=== PATIENT | female | born 1960 ===

== ENCOUNTER 2020-01-19 10:05 | Outpatient (REF) | payer MEDICARE, MEDICAID, SELFPAY ==
[2020-01-19 13:46] LABS: MANUAL DIFF FLAG NO
[2020-01-19 13:50] LABS: Basophils Absolute Auto 0.1 X10*3/uL (0.0-0.2); Eosinophils Absolute Auto 0.3 X10*3/uL (0.0-0.4); Eosinophils Percent Auto 3.5 % (0-4); Hematocrit 37.2 % (37-47); Hemoglobin 12.6 g/dl (12.0-16.0); Imm Gran Abs Auto 0.03 X10*3/uL (0.00-0.03); Imm Gran Pct Auto 0.4 % (0.0-0.4); Lymphocytes Absolute Auto 3.9 X10*3/uL (1.2-4.9); Lymphocytes Percent Auto 49.4 % (20-40); Mean Corpuscular HGB Conc 33.9 g/dl (31.0-35.0); Mean Corpuscular Hemoglobin 34.5 pg (27.0-33.0); Mean Corpuscular Volume 101.9 fL (80-98); Mean Platelet Volume 10.7 fL (9.4-12.3); Monocytes Absolute Auto 0.5 X10*3/uL (0.1-1.2); Monocytes Percent Auto 6.4 % (2-11); Neutrophils Absolute Auto 3.1 X10*3/uL (2.0-8.3); Neutrophils Percent Auto 39.3 % (45-73); Platelet Count 269 X10*3/uL (160-400); Red Blood Count 3.65 X10*6/uL (4.20-5.50); Red Cell Distribution Width 13.6 % (11.0-16.0); White Blood Count 7.8 X10*3/uL (4.8-10.8)
[2020-01-19 14:26] LABS: Alanine Aminotransferase 13 U/L (0-31); Albumin Level 4.1 g/dL (3.5-5.0); Alkaline Phosphatase 112 U/L (39-117); Anion Gap 11 (12-20); Aspartate Amino Transferase 14 U/L (5-31); Bilirubin Direct < 0.2 mg/dL (0.0-0.5); Bilirubin Total 0.2 mg/dL (0.0-1.0); Blood Urea Nitrogen 10 mg/dL (9-16); Carbon Dioxide 27 mmol/L (22-29); Chloride 106 mmol/L (96-108); Estimated Glomerular Filt Rate > 60; Glucose Random 90 mg/dL (60-115); Potassium 4.1 mmol/l (3.3-5.1); Sodium 140 mmol/L (135-145); Total Protein 6.6 g/dL (6.5-8.0)
[2020-01-24 09:40] LABS: ~HepC Num1 0.21 S/CO (0.00-0.79); ~Hepatitis C Antibody Nonreactive (Nonreactive)
== END 2020-01-19 10:06 | disposition home or self-care (01) ==
LOC: HO.10HDL 10:05
PROVIDERS: Visit Provider Internal Medicine
DX: B20 Human immunodeficiency virus [HIV] disease (principal)
CPT/HCPCS: 36415; 80048; 80076; 85025; 86803; 87389

== ENCOUNTER 2020-02-02 12:43 | Outpatient (REF) | payer MEDICARE, MEDICAID, SELFPAY ==
[2020-02-03 16:06] LABS: Absolute CD3 Count 3059 cells/uL (840-3060); Absolute CD4 Count 1842 cells/uL (490-1740); Absolute CD8 Count 1260 cells/uL (180-1170); Absolute Lymphocytes 3905 cells/uL (850-3900); CD4 CD8 Ratio 1.46 (0.86-5.00); Percent CD3 Cells 78 % (57-85); Percent CD4 Cells 47 % (30-61); Percent CD8 Cells 32 % (12-42)
== END 2020-02-02 12:44 | disposition home or self-care (01) ==
LOC: HO.10HDL 12:43
PROVIDERS: Visit Provider Orthopaedic Surgery
DX: B20 Human immunodeficiency virus [HIV] disease (principal)
CPT/HCPCS: 36415; 86359; 86360

== ENCOUNTER → 2020-02-16 17:00 | Outpatient (BNVA) | payer MEDICARE, MEDICAID, SELFPAY | PROVIDERS: Visit Provider Internal Medicine | DX: B20 Human immunodeficiency virus [HIV] disease (principal) | CPT/HCPCS: 99212 ==

== ENCOUNTER 2020-07-26 11:14 | Outpatient (REF) | payer MEDICARE, MEDICAID, SELFPAY ==
[2020-07-26 14:00] LABS: MANUAL DIFF FLAG NO
[2020-07-26 14:13] LABS: Basophils Absolute Auto 0.1 X10*3/uL (0.0-0.2); Basophils Percent Auto 0.7 % (0-2); Eosinophils Absolute Auto 0.2 X10*3/uL (0.0-0.4); Eosinophils Percent Auto 2.6 % (0-4); Hematocrit 35.4 % (37-47); Hemoglobin 12.2 g/dl (12.0-16.0); Imm Gran Abs Auto 0.04 X10*3/uL (0.00-0.03); Imm Gran Pct Auto 0.5 % (0.0-0.4); Lymphocytes Absolute Auto 2.9 X10*3/uL (1.2-4.9); Lymphocytes Percent Auto 35.6 % (20-40); Mean Corpuscular HGB Conc 34.5 g/dl (31.0-35.0); Mean Corpuscular Hemoglobin 35.7 pg (27.0-33.0); Mean Corpuscular Volume 103.5 fL (80-98); Mean Platelet Volume 10.6 fL (9.4-12.3); Monocytes Absolute Auto 0.4 X10*3/uL (0.1-1.2); Monocytes Percent Auto 5.3 % (2-11); Neutrophils Absolute Auto 4.5 X10*3/uL (2.0-8.3); Neutrophils Percent Auto 55.3 % (45-73); Platelet Count 291 X10*3/uL (160-400); Red Blood Count 3.42 X10*6/uL (4.20-5.50); Red Cell Distribution Width 14.1 % (11.0-16.0); White Blood Count 8.2 X10*3/uL (4.8-10.8)
[2020-07-26 14:21] LABS: Alanine Aminotransferase 14 U/L (0-31); Alkaline Phosphatase 117 U/L (39-117); Anion Gap 10 (12-20); Aspartate Amino Transferase 11 U/L (5-31); Bilirubin Direct < 0.2 mg/dL (0.0-0.5); Bilirubin Total 0.3 mg/dL (0.0-1.0); Blood Urea Nitrogen 12 mg/dL (9-16); Calcium 9.1 mg/dL (8.4-10.2); Carbon Dioxide 24 mmol/L (22-29); Chloride 108 mmol/L (96-108); Estimated Glomerular Filt Rate > 60; Glucose Random 80 mg/dL (60-115); Potassium 3.8 mmol/L (3.3-5.1); Sodium 138 mmol/L (135-145); Total Protein 6.5 g/dL (6.5-8.0)
[2020-07-27 11:07] LABS: Absolute CD3 Count 2382 cells/uL (840-3060); Absolute CD4 Count 1418 cells/uL (490-1740); Absolute CD8 Count 1018 cells/uL (180-1170); Absolute Lymphocytes 3045 cells/uL (850-3900); CD4 CD8 Ratio 1.39 (0.86-5.00); Percent CD3 Cells 78 % (57-85); Percent CD4 Cells 47 % (30-61); Percent CD8 Cells 33 % (12-42)
[2020-07-28 07:44] LABS: ~Hepatitis C Antibody Nonreactive (Nonreactive)
[2020-07-28 16:02] LABS: HIV RNA PCR Qn Copies 32 copies/mL (NOT DETECTED); HIV RNA PCR Qn Log Copies 1.51 (NOT DETECTED)
== END 2020-07-26 11:15 | disposition home or self-care (01) ==
LOC: HO.10HDL 11:14
PROVIDERS: Absent Provider Internal Medicine; Visit Provider Internal Medicine
DX: B20 Human immunodeficiency virus [HIV] disease (principal)
CPT/HCPCS: 36415; 80048; 80076; 85025; 86359; 86360; 86803; 87536

== ENCOUNTER 2020-07-27 15:39 | Outpatient (REF) | payer MEDICARE, MEDICAID, SELFPAY ==
--- NOTE | ~2020-07-27 | XR_ITS ---
EXAMINATION: XR CHEST CLINICAL INFORMATION: Tobacco use. Rule out lesion. COMPARISON: 10/29/2018 TECHNIQUE: 2 views of the chest were obtained. FINDINGS: The lungs are well expanded. Mild blunting at the right costophrenic angle. No consolidation or edema. No pneumothorax. The cardiomediastinal silhouette is within normal limits. No acute osseous abnormality. XR/XR chest 2V IMPRESSION: Mild blunting of the right costophrenic angle could represent a small pleural effusion versus pleural thickening. No consolidation or mass identified.
--- NOTE | ~2020-07-27 | XR_ITS ---
EXAMINATION: XR HIP, LEFT CLINICAL INFORMATION: Assess osteoarthritis COMPARISON: None TECHNIQUE: Single AP view the pelvis and AP and frog-leg lateral views of the left hip FINDINGS: No acute fracture or dislocation. Femoral heads are spherical. Mild/moderate bilateral hip joint space narrowing and associated acetabular and femoral collar marginal osteophytes. Mild bilateral sacroiliac joint sclerosis and associated marginal osteophytes. Degenerative changes of the symphysis pubis. Discogenic degenerative disease present at L4-L5 and L5-S1. XR/XR hip LT w PEL1V IMPRESSION: Moderate bilateral hip arthrosis, slightly worse on the left. Mild bilateral sacroiliac arthrosis.
== END 2020-07-27 15:40 | disposition home or self-care (01) ==
LOC: HO.XRAY 15:39
PROVIDERS: PCP Internal Medicine; Visit Provider Internal Medicine
DX: M25.552 Pain in left hip (principal); R63.4 Abnormal weight loss; Z72.0 Tobacco use
CPT/HCPCS: 71046; 73502

== ENCOUNTER → 2020-08-10 13:03 | Outpatient (BNVA) | payer MEDICARE, MEDICAID, SELFPAY | PROVIDERS: PCP Internal Medicine; Visit Provider Orthopaedic Surgery | DX: B20 Human immunodeficiency virus [HIV] disease (principal); M16.12 Unilateral primary osteoarthritis, left hip | CPT/HCPCS: 99212 ==

== ENCOUNTER → 2020-09-04 15:30 | Outpatient (BNVA) | payer MEDICARE, MEDICAID, SELFPAY | PROVIDERS: PCP Internal Medicine; Visit Provider Internal Medicine | DX: B20 Human immunodeficiency virus [HIV] disease (principal) | CPT/HCPCS: Q3014 ==

== ENCOUNTER 2020-11-23 09:57 | Outpatient (REF) | payer MEDICARE, MEDICAID, SELFPAY ==
--- NOTE | 2020-11-23 11:39 | ECG_ITS ---
Test Reason : Z01.810 PREOP Blood Pressure : / mmHG Vent. Rate : 064 BPM Atrial Rate : 064 BPM P-R Int : 136 ms QRS Dur : 082 ms QT Int : 426 ms P-R-T Axes : 063 044 052 degrees QTc Int : 439 ms Normal sinus rhythm Normal ECG When compared with ECG of 29-OCT-2018 09:30, Vent. rate has decreased BY 38 BPM Referred By: Devaughn Nichols Electronically Signed By:PHIL GARRETT MD
[2020-11-23 13:28] LABS: MANUAL DIFF FLAG NO
[2020-11-23 13:34] LABS: Basophils Absolute Auto 0.1 X10*3/uL (0.0-0.2); Basophils Percent Auto 0.9 % (0-2); Eosinophils Absolute Auto 0.2 X10*3/uL (0.0-0.4); Hematocrit 38.3 % (37-47); Hemoglobin 12.7 g/dl (12.0-16.0); Imm Gran Abs Auto 0.03 X10*3/uL (0.00-0.03); Imm Gran Pct Auto 0.4 % (0.0-0.4); Lymphocytes Absolute Auto 3.4 X10*3/uL (1.2-4.9); Lymphocytes Percent Auto 44.3 % (20-40); Mean Corpuscular HGB Conc 33.2 g/dl (31.0-35.0); Mean Corpuscular Volume 102.4 fL (80-98); Mean Platelet Volume 10.8 fL (9.4-12.3); Monocytes Absolute Auto 0.5 X10*3/uL (0.1-1.2); Monocytes Percent Auto 6.1 % (2-11); Neutrophils Absolute Auto 3.5 X10*3/uL (2.0-8.3); Neutrophils Percent Auto 45.3 % (45-73); Platelet Count 259 X10*3/uL (160-400); Red Blood Count 3.74 X10*6/uL (4.20-5.50); Red Cell Distribution Width 13.2 % (11.0-16.0); White Blood Count 7.7 X10*3/uL (4.8-10.8)
[2020-11-23 13:48] LABS: Anion Gap 10 (12-20); Blood Urea Nitrogen 13 mg/dL (9-16); Calcium 8.9 mg/dL (8.4-10.2); Carbon Dioxide 26 mmol/L (22-29); Chloride 109 mmol/L (96-108); Estimated Glomerular Filt Rate > 60; Glucose Random 96 mg/dL (60-115); Potassium 3.8 mmol/L (3.3-5.1); Sodium 141 mmol/L (135-145)
== END 2020-11-23 09:58 | disposition home or self-care (01) ==
LOC: HO.10HDL 09:57
PROVIDERS: PCP Internal Medicine; Visit Provider Orthopaedic Surgery
DX: Z01.810 Encounter for preprocedural cardiovascular examination (principal); Z01.812 Encounter for preprocedural laboratory examination
CPT/HCPCS: 36415; 80048; 85025; 93005

== ENCOUNTER 2020-12-21 08:54 | Outpatient (REF) | payer MEDICARE, MEDICAID, SELFPAY ==
--- NOTE | ~2020-12-21 | XR_ITS ---
EXAMINATION: XR PELVIS CLINICAL INFORMATION: M25.559 - Pain in unspecified hip COMPARISON: Pelvic radiographs 07/27/2020, lumbar spine 12/13/2016 TECHNIQUE: AP view of the pelvis. FINDINGS: There are degenerative changes lower lumbar spine with disc narrowing and vertebral spurring L3-S1. There are mild degenerative changes SI joints. Whiskering lateral aspect bilateral iliac crests is seen. There is mild osteitis pubis and mild degenerative changes bilateral hips. Findings are similar to recent exam 07/27/2020. There is no fracture, dislocation, or destructive process. There is moderate stool in the colon. Ribbon shaped clip overlies midabdomen, not previously imaged. XR/XR pelvis 1-2V IMPRESSION: 1. Degenerative changes lumbosacral spine. 2. Osteitis pubis. Mild degenerative changes hips.
== END 2020-12-21 08:55 | disposition home or self-care (01) ==
LOC: HO.HOSX 08:54
PROVIDERS: Visit Provider Orthopaedic Surgery
DX: M16.12 Unilateral primary osteoarthritis, left hip (principal)
CPT/HCPCS: 72170; 99212

== ENCOUNTER 2020-12-27 12:16 | Inpatient (IN) | payer MEDICARE, MEDICAID, SELFPAY ==
--- NOTE | 2020-12-22 11:55 | HO.ANESPROP2 ---
Documented by User: Abbey Gay NP 12/25/20 08:22 HPI - Anesthesia Eval Consult details Narrative: 60yo F for Left Hip Total Replacement PCP cleared PMFSH Active Problems Active Problems: All Active Problems (Updated 12/21/20 @ 13:15 by Art Francisco PA-C) Osteoarthritis of left hip (Acute) HIV (human immunodeficiency virus infection) (Acute) Past Medical History Medical History Arthritis COVID-19 vaccine series completed History of COVID-19 HIV (human immunodeficiency virus infection) Family History Family history of problems with anesthesia: No Surgical History Surgical History History of colonoscopy Hx laparoscopic cholecystectomy Hx of rectal sphincterotomy History of Problems with Anesthesia: No Social History Social History Are you a primary progressive care unit registered nurse to a significant other at home: No Do you presently have visiting nurse or other home services: No Patient Tobacco Use Status: Current everyday Tobacco user Tobacco use type: Cigarette Cigarettes Per Day: 3 Years Smoked: 41 Smoked in Last 30 Days: Yes Patient Interested in Nicotine Replacement: Yes Use of substances other than those prescribed or required for medical reasons: No Have you been hit, kicked, punched, or otherwise hurt by someone within the past year? If so, by whom?: No Are you DNR?: No Advance Directives: Yes (states is her daughter) Advance Directives Information Provided: Yes Advance Directives on File: Yes Advance Directives Date on File: 01/19/20 Recently lost weight without trying: No Eating poorly because of decreased appetite: No Nutrition Risks: No Nutritional Risk Poor oral hygiene: No (upper & lower partials) Current occupational status: disabled Current occupation: rt handed Narrative Narrative: No recent illness No CP/SOB >4 mets Meds Allergies Allergy/AdvReac Type Severity Reaction Status Date / Time No Known Allergies Allergy Verified 12/21/20 13:18 [No Known Allergies*] Home Medications Medication Instructions Recorded Confirmed Last Taken Type efavirenz 600 mg-emtricitabine 200 1 tab PO DAILY 12/27/20 12/27/20 12/27/20 00:00 History mg-tenofovir disoprox 300 mg tablet (Atripla) Exam Exam Date and Time: December 22, 2020 1155 Height,Weight and Vital Signs: Vital Signs Pulse Rate 70 12/22/20 12:08 Respiratory Rate 12/22/20 12:08 Blood Pressure 132/82 12/22/20 12:08 Pulse Oximetry 98 12/22/20 12:08 Pulse Rate 70 12/22/20 12:08 Respiratory Rate 12/22/20 12:08 Blood Pressure 132/82 12/22/20 12:08 Pulse Oximetry 98 12/22/20 12:08 Pertinent Lab Results Pertinent Lab Results: Laboratory Tests 11/23/20 11/23/20 11:35 11:35 WBC 7.7 Hgb 12.7 Hct 38.3 Plt Count 259 Sodium 141 Potassium 3.8 Chloride 109 H Carbon Dioxide 26 BUN 13 Creatinine 0.76 Laboratory Tests 07/26/20 11:25 Total Lymphocytes 3045 % CD3 Cells 78 Absolute CD3 Count 2382 % CD4 Cells 47 Absolute CD4 Count 1418 CD4/CD8 Ratio 1.39 % CD8 Cells 33 Absolute CD8 Count 1018 Lab Results 12/22/20 12/22/20 Range/Units 12:30 13:00 Nasal Screen MRSA (PCR) NEGATIVE (Negative) Nasal S. aureus Screen NEGATIVE (Negative) Nasal MRSA/S.aureus Interp SEE NOTE Blood Type O Negative Antibody Screen NEGATIVE Narrative Narrative: EKG 11/2020 Vent. Rate : 064 BPM ? ? Atrial Rate : 064 BPM ?? P-R Int : 136 ms? QRS Dur : 082 ms ? ? QT Int : 426 ms ? ? ? P-R-T Axes : 063 044 052 degrees ?? QTc Int : 439 ms ? Normal sinus rhythm Normal ECG When compared with ECG of 29-OCT-2018 09:30, Vent. rate has decreased BY? 38 BPM Airway Mallampati Class: I TM Dist: >3cm Neck ROM: Full Partial: Lower Heart: RRR Lungs: CTAB Assessment and Plan Assessment Anesthesia Assessment: Anesthesia Plan Discussed, Smoking Cess. Discussed and PAT Visit Final Anesthetic Review Family History of Problems with Anesthesia: No History of Problems with Anesthesia: No Documented by User: Irene Holloway MD 12/27/20 13:15 PMF Past Medical History Medical History Arthritis COVID-19 vaccine series completed History of COVID-19 HIV (human immunodeficiency virus infection) Surgical History Surgical History History of colonoscopy Hx laparoscopic cholecystectomy Hx of rectal sphincterotomy Social History Social History Are you a primary progressive care unit registered nurse to a significant other at home: No Do you presently have visiting nurse or other home services: No Patient Tobacco Use Status: Current everyday Tobacco user Tobacco use type: Cigarette Cigarettes Per Day: 3 Years Smoked: 41 Smoked in Last 30 Days: Yes Patient Interested in Nicotine Replacement: Yes Use of substances other than those prescribed or required for medical reasons: No Have you been hit, kicked, punched, or otherwise hurt by someone within the past year? If so, by whom?: No Are you DNR?: No Advance Directives: Yes (states is her daughter) Advance Directives Information Provided: Yes Advance Directives on File: Yes Advance Directives Date on File: 01/19/20 Recently lost weight without trying: No Eating poorly because of decreased appetite: No Nutrition Risks: No Nutritional Risk Poor oral hygiene: No (upper & lower partials) Current occupational status: disabled Current occupation: rt handed Meds Allergies Allergy/AdvReac Type Severity Reaction Status Date / Time No Known Allergies Allergy Verified 12/21/20 13:18 [No Known Allergies*] Home Medications Medication Instructions Recorded Confirmed Last Taken Type efavirenz 600 mg-emtricitabine 200 1 tab PO DAILY 12/27/20 12/27/20 12/27/20 00:00 History mg-tenofovir disoprox 300 mg tablet (Atripla) Assessment and Plan Final Anesthetic Review NPO: Yes ASA Class: III Final Preanesthetic Review: No Changes in Pt Med Stat, Meds/Allgs Chart Reviewed, Consent Obtained/Reviewed and Anes Risks/Benef Reviewed Patient Risk: Intermediate Procedure Risk: Intermediate Assessment/Block/Sedation in SS: Assess/Block/Sedation-SS Anesthetic Plan Anesthetic Plan: GA Disposition: Standard PACU
[2020-12-22 12:08] VITALS: BP 132/82; PULSE 70; RESP 20; O2SAT 98; BMI 24.6
[2020-12-22 14:33] LABS: MRSA Nasal PCR NEGATIVE (Negative); SA Nasal PCR NEGATIVE (Negative)
--- NOTE | 2020-12-22 16:50 | HP_ITS ---
DATE OF SERVICE: 12/26/2020 The patient is a 60-year-old female who is scheduled for a left total hip replacement with Dr. Nichols on December 26. The patient was seen today for preop evaluation. She feels well. Weight is up 5 pounds. She still smokes a few cigarettes each day. MEDICATIONS: Her present medications are Atripla, Claritin, Flonase, and a Ventolin inhaler. PAST MEDICAL HISTORY: Significant for hay fever, asthma, tobacco use, HIV positive. FAMILY HISTORY: Father at 78 from complications of diabetes. Mother at 61 from colon cancer. One brother at 55 from brain cancer. PAST SURGICAL HISTORY: Significant for cholecystectomy. She does have a history of colon polyps and had a colonoscopy in March of 2019, so she is up to date with that. SOCIAL HISTORY: She has 5 adult children in good health. REVIEW OF SYSTEMS: No fevers, chills, or sweats. Weight is up 5 pounds. No headaches or dizziness. No vision changes. No chest pains or palpitations. No peripheral edema. Persistent cough with wheezes occasionally. Some dyspnea with exertion. No heartburn or stomach pains. No dysuria. She has arthritis in her hips. Sleeps normally. Appetite good. She does have seasonal allergies. No skin complaints. PHYSICAL EXAMINATION: GENERAL: She is awake and alert, in no distress. VITAL SIGNS: Temperature is 98.2, pulse 83, respirations 12, blood pressure 116/78, 99% oxygen saturation on room air. Weight is 143. She is 5 feet and 3-1/2 inches. HEENT: Pupils equal. TMs clear. Pharynx clear. NECK: Supple. No lymph nodes, bruits, or masses. HEART: Sounds S1 and S2. Regular rate. LUNGS: Little distant, but clear. ABDOMEN: Soft and nontender with positive bowel sounds. No HSM. EXTREMITIES: No clubbing, cyanosis, or edema. 1 to 2+ pulses. Cranial nerves II through XII are intact. NEUROLOGIC: She is awake and alert, in no distress. Labs and EKG were completed in the hospital. She is medically stable for the proposed procedure. I will be available for any medical questions. Thank you very much. MD MADDY Negron/FRANCISCO / [phone]
[2020-12-27] VITALS (12 sets, daily range): BP systolic 107–127; BP diastolic 59–87; PULSE 63–78; RESP 13–18; TEMP 36.1–37; O2SAT 96–100; BMI 24.6
--- NOTE | ~2020-12-27 | XR_ITS ---
EXAMINATION: XR PELVIS CLINICAL INFORMATION: Postop COMPARISON: Previous x-ray of the pelvis 12/21/2020 TECHNIQUE: AP view of the pelvis. FINDINGS: There is a new hip replacement in satisfactory position. No fracture or dislocation is seen. Bones of the pelvis are unremarkable. There is arthritis of the right hip joint. Soft tissues are unremarkable. XR/XR pelvis 1-2V IMPRESSION: Satisfactory appearance of left hip replacement.
[2020-12-27] MEDS: oxyCODONE HCl ER 10 MG TAB.ER.12H PO ×2 (12:28→20:21)
[2020-12-27 12:47] LABS: COVID-19 Test Negative (Negative)
[2020-12-27] MEDS: Lactated Ringers 1,000 ML 100 ML IVCONT (13:11)
--- NOTE | 2020-12-27 13:31 | MHC.SHP ---
Pre-Procedural Eval Section A Date of Service: 12/27/20 The patient is an INPATIENT: No Changes since office visit: Yes Patient answered all questions; No Cold of Flu in the past 2 weeks, No New Medical Problems and No Changes in Medication The History & Physical has been completed within 30 days and I have reviewed it.: Yes Section B Chief Complaint: left total hip arthroplasty Allergies: Allergies Allergy/AdvReac Type Severity Reaction Status Date / Time No Known Allergies Allergy Verified 12/21/20 13:18 [No Known Allergies*] Plan I have reviewed the history and physical and performed a pertinent physical examination on my patient. No changes have occurred unless specified.
[2020-12-27] MEDS: ceFAZolin Sodium/Dextrose,Iso 2 GM/50 ML PIGGYBACK IV (14:23)
--- NOTE | 2020-12-27 15:41 | P.BOP_ITS ---
Brief Operative Note Date of Service: 12/27/20 Pre-op diagnosis: left hip OA Post-op diagnosis: same Procedure: Left ROBEL Implants: Phelps trrident2 48/accolade2 #3 132 deg with +0 ceramic 32 femoral head and 10 deg posterior lipped liner Surgeon: Devaughn Nichols MD Anesthesia: GETA and local Was an Manager Front used for this Procedure?: Yes Manager Front: Mireille Griggs Estimated blood loss (mL): 150 IV fluids (mL): 700 Pathology: other Condition: stable Disposition: PACU
--- NOTE | 2020-12-27 15:44 | P.OP_ITS ---
Operative Note Operative Note Date of Service: 12/27/20 Narrative: Pre-op diagnosis: left hip OA Post-op diagnosis: same Procedure: Left ROBEL Implants: Yale trrident2 48/accolade2 #3 132 deg with +0 ceramic 32 femoral head and 10 deg posterior lipped liner Surgeon: Devaughn Nichols MD Anesthesia: GETA and local Was an Mechanical Product Design Engineer used for this Procedure?: Yes Mechanical Product Design Engineer: Mireille Griggs Estimated blood loss (mL): 150 IV fluids (mL): 700 Pathology: other Condition: stable Disposition: PACU Procedure in detail: Patient was brought into the operating room and placed in the right lateral decubitus position. All bony prominences were well padded and the limb was prepped and draped in standard sterile fashion. Time-out was called to identify proper site procedure proper surgeon IV antibiotics and 1 g of transaxemic acid were administered. I began by making a curvilinear incision over the posterolateral aspect of the greater trochanter. Dissection was taken down to the tensor fascia which was incised in line with the incision and a Charnley retractor was placed. Cautery and a Werewolf were used to maintain hemostasis. The hip was internally rotated and the external rotators were identified. The vessels were cauterized and a full-thickness capsular/external rotator layer was developed starting just proximal to the piriformis. This layer was tagged and a dull Hohmann retractor was placed underneath the neck in the hip was dislocated. The head was circumerentially afflicted with arthritis. A neck cut was made 1 cm proximal to the lesser trochanter and the head and neck were removed and measured on the back table. I then placed my anterior-posterior acetabular retra ctors and performed a labrectomy. The hgead measured a 42 and I then sequentially reamed up to a size 48 with a 46 not through sclerotic bone. I then impacted a 48mm cup at approximately 45 degrees of inclination and 25 degrees of version. I then placed a __10 deg posterior lipped liner and turned my attention to the femur. I identified the piriformis insertion and used this as a starting point for my levi cutter. The medius tendon was protected with a Hibs retractor. I then used a Charnley awl to identify the canal and a curved curette to remove the lateral bone. I then sequentially broached in the patient's natural version to a size _3___ and placed my trial implants. Using a ____+0 head I took the hip through range of motion and I was very satisfied with the stability and length. Therefore I removed all instrumentation, copiously irrigated placed my final femoral implant. I again took the hip through range of motion and was satisfied with the stability and length using a + 0 and so the final femoral head was impacted in place. I then irrigated for 3 minutes with iodine and placed 1 g of local TXA. I then performed a capsular closure with FiberWire, Farhana's fascia with 0 Vicryl, subcuticular with 2-0 vicryl and skin with wendie. Patient was placed into a sterile dressing. Radiographs were obtained at the completion of the case and I was satisfied with the component position. Patient was extubated brought to the recovery room in stable condition.
[2020-12-27] MEDS: oxyCODONE HCl Immed Release 5 MG TABLET PO ×2 (16:11→20:20)
[2020-12-27] MEDS: fentaNYL citrate/PF 100 MCG/2 ML VIAL 50 MCG IVPUSH ×2 (16:13→16:23)
[2020-12-27] MEDS: Dextrose 5 % and 0.45 % NaCl 1,000 ML 80 ML IVCONT (20:01)
[2020-12-27] MEDS: 0.9 % Sodium Chloride Flush 3 ML SYRINGE IVFLUSH (20:01)
[2020-12-27] MEDS: Acetaminophen 325 MG TABLET 650 MG PO (20:21)
[2020-12-27] MEDS: Docusate Sodium 100 MG CAPSULE PO (20:22)
[2020-12-28] VITALS (8 sets, daily range): BP systolic 97–123; BP diastolic 62–76; PULSE 66–88; RESP 16–18; TEMP 36.7–38.1; O2SAT 97–100
[2020-12-28] MEDS: oxyCODONE HCl Immed Release 5 MG TABLET PO ×3 (00:25→18:01)
[2020-12-28] MEDS: Acetaminophen 325 MG TABLET 650 MG PO ×2 (04:30→20:50)
[2020-12-28 05:44] LABS: MANUAL DIFF FLAG NO
[2020-12-28 05:48] LABS: Basophils Percent Auto 0.3 % (0-2); Eosinophils Absolute Auto 0.1 X10*3/uL (0.0-0.4); Eosinophils Percent Auto 0.7 % (0-4); Hematocrit 30.9 % (37-47); Hemoglobin 10.5 g/dl (12.0-16.0); Imm Gran Abs Auto 0.04 X10*3/uL (0.00-0.03); Imm Gran Pct Auto 0.4 % (0.0-0.4); Lymphocytes Absolute Auto 1.5 X10*3/uL (1.2-4.9); Lymphocytes Percent Auto 16.3 % (20-40); Mean Platelet Volume 10.4 fL (9.4-12.3); Monocytes Absolute Auto 0.6 X10*3/uL (0.1-1.2); Monocytes Percent Auto 6.8 % (2-11); Neutrophils Percent Auto 75.5 % (45-73); Platelet Count 242 X10*3/uL (160-400); Red Cell Distribution Width 14.6 % (11.0-16.0); White Blood Count 9.2 X10*3/uL (4.8-10.8)
[2020-12-28 06:09] LABS: Anion Gap 11 (12-20); Blood Urea Nitrogen 15 mg/dL (9-16); Calcium 8.4 mg/dL (8.4-10.2); Carbon Dioxide 26 mmol/L (22-29); Chloride 106 mmol/L (96-108); Creatinine Clr Calc Pharmacy 77.9; Estimated Glomerular Filt Rate > 60; Glucose Fasting 148 mg/dL (60-99); Potassium 3.8 mmol/L (3.3-5.1); Sodium 139 mmol/L (135-145)
--- NOTE | 2020-12-28 07:29 | HO.POSTANES ---
Post Anesthesia Evaluation Post Anesthesia Evaluation Vital Signs: Vital Signs Temp Pulse Resp BP Pulse Ox 12/28/20 04:00 98.5 F 80 18 123/76 99 12/28/20 00:00 98.2 F 66 18 117/72 100 12/27/20 20:00 98.4 F 71 18 116/73 97 Anesthesia: General Mental Status: Awake Pain Control: Satisfactory Nausea/Vomiting: None Hydration: Adequate Anesthesia-Related Issues: No Anes. Related Issues
--- NOTE | 2020-12-28 07:38 | P.CONHOSP_ITS ---
History of Present Illness Data of Consult Service Date: 12/28/20 Requesting physician: Devaughn Nichols Primary Care Provider: Unknown Physician HPI Reason for consult: HIV management 60 year female with HIV on HAART and has OA of hip who undwent left ROBEL on 12/[address] Nichols and asked to eval for medical issues. She presently has no active medical issues and there was no acute medical issues. Review of Systems Review of Systems: Gen: no fever Resp: no sob, no cough CV: no chest, no TOMPKINS, no leg edema GI: No n/v, no abd pain Neuro: No confusion Yes all other systems are reviewed and are negative [facility] [place] Medical History Arthritis COVID-19 vaccine series completed History of COVID-19 HIV (human immunodeficiency virus infection) Family History (Updated 12/28/20 @ 08:43 by Roberto Gaitan MD) Mother Diabetes Surgical History History of colonoscopy Hx laparoscopic cholecystectomy Hx of rectal sphincterotomy Social History Household Members: Children Housing: House Are you a primary palliative care specialist to a significant other at home: No Do you presently have visiting nurse or other home services: No Patient Tobacco Use Status: Current everyday Tobacco user Tobacco use type: Cigarette Cigarettes Per Day: 3 Years Smoked: 41 Smoked in Last 30 Days: Yes Patient Interested in Nicotine Replacement: Yes Use of substances other than those prescribed or required for medical reasons: No Have you been hit, kicked, punched, or otherwise hurt by someone within the past year? If so, by whom?: No Do you feel safe in your current relationship?: Yes Is there a partner from a previous relationship who is making you feel unsafe now?: No Are you made to feel afraid or neglected: No Are you DNR?: No Advance Directives: Yes (states is her daughter) Advance Directives Information Provided: Yes Advance Directives on File: Yes Advance Directives Date on File: 01/19/20 Do you have thoughts of harming others: None Recently lost weight without trying: No Eating poorly because of decreased appetite: No Nutrition Risks: No Nutritional Risk Poor oral hygiene: No (upper & lower partials) Current occupational status: disabled Current occupation: rt handed Meds Allergies Allergy/AdvReac Type Severity Reaction Status Date / Time No Known Allergies Allergy Verified 12/21/20 13:18 [No Known Allergies*] Active Medications: Current Medications Generic Name Dose Route Start Last Admin Trade Name Freq PRN Reason Stop Dose Admin Acetaminophen 650 mg 12/27/20 19:16 12/28/20 04:30 Acetaminophen 325 Mg Tablet PO 650 mg Q6H PRN Administration Pain, Mild (Pain Scale 1-3) Aspirin 325 mg 12/28/20 11:00 Aspirin 325 Mg Tablet PO BID AMRITA Docusate Sodium 100 mg 12/27/20 21:00 12/27/20 20:22 Docusate Sodium 100 Mg Capsule PO 100 mg BID AMRITA Administration Efavirenz/Emtricitabine/Tenofovir 1 tab 12/28/20 09:00 Efavirenz/Emtricitab/Tenof Df 600/200/300 Tablet PO DAILY AMRITA Hydromorphone HCl 0.25 mg 12/27/20 19:16 Hydromorphone Hcl 0.5 Mg/0.5 Ml Syringe IVPUSH Q4H PRN Pain, Severe (Pain Scale 7-10) Protocol Dextrose/Sodium Chloride 1,000 mls @ 80 mls/hr 12/27/20 19:16 12/27/20 20:01 D51/2ns IVCONT 80 mls/hr .[id number] AMRITA Administration Cefazolin Sodium/Dextrose 2 gm in 50 mls @ 100 mls/hr 12/27/20 20:30 Ancef IV POSTOP AMRITA Ondansetron HCl 4 mg 12/27/20 19:16 Ondansetron Hcl 4 Mg/2 Ml Vial IVPUSH Q8H PRN Nausea and Vomiting Oxycodone HCl 5 mg 12/27/20 19:16 12/28/20 00:25 Oxycodone Hcl Immed Release 5 Mg Tablet PO 5 mg Q4H PRN Administration Pain, Moderate (Pain Scale 4-6 Oxycodone HCl 10 mg 12/27/20 21:00 12/27/20 20:21 Oxycodone Hcl Er 10 Mg Tab.Er.12h PO 10 mg BID AMRITA Administration Sodium Chloride 3 ml 12/27/20 19:16 12/28/20 00:26 0.9 % Sodium Chloride Flush 3 Ml Syringe IVFLUSH Not Given QSHIFT [facility] Home Medications Medication Instructions Recorded Confirmed Last Taken Type efavirenz 600 mg-emtricitabine 200 1 tab PO DAILY 12/27/20 12/27/20 12/27/20 00:00 History mg-tenofovir disoprox 300 mg tablet (Atripla) Physical Exam Vital Signs and Narrative: Vital Signs: Last Vital Signs Temp 98.5 F 12/28/20 04:00 Pulse 80 12/28/20 04:00 Resp 18 12/28/20 04:00 BP 123/76 12/28/20 04:00 Pulse Ox 99 12/28/20 04:00 Body Mass Index 24.6 Constitutional Awake and Alert, No apparent distress Neck Supple, No lymphadenopathy Cardiovascular RRR, No M/R/G, S1 S2, No S3 S4, No pedal edema Respiratory Lungs clear, No respiratory distress Gastrointestinal Non tender, Non-distended Skin No rash Neurological Alert & oriented x3 Psychological Appropriate affect Results Labs CBC and Chem 7: 12/28/20 05:20 12/28/20 05:20 Labs: Laboratory Results - last 24 hr 12/27/20 12/28/20 12/28/20 12:12 05:20 05:20 MCV 103.0 H MCH 35.0 H MCHC 34.0 RDW 14.6 Plt Count 242 MPV 10.4 Immature Gran % (Auto) 0.4 Neut % (Auto) 75.5 H Lymph % (Auto) 16.3 L [place] % (Auto) 6.8 Eos % (Auto) 0.7 Baso % (Auto) 0.3 Lymph # (Auto) 1.5 [place] # (Auto) 0.6 Eos # (Auto) 0.1 Baso # (Auto) 0.0 Abs Immat Gran (auto) 0.04 H Absolute Neuts (auto) 7.0 Absolute Nucleated RBC 0.000 Nucleated RBC % (auto) 0.0 Anion Gap 11 L Estim Creat Clear Calc 77.9 Estimated GFR > 60 Fasting Glucose 148 H Calcium 8.4 COVID-19 (LOLY) Negative COVID-19 Clin Com See Note Imaging Radiologist's Impressions: Impressions Pelvis X-Ray 12/27/20 15:26 IMPRESSION: Satisfactory appearance of left hip replacement. Assessment and Plan (1) HIV (human immunodeficiency virus infection): Status: Acute (2) Osteoarthritis of left hip: Status: Acute HIV--continue HAART s/p L ROBEL, management by Ortho Sincie patient is stable of med and no acute issues, will sing off at this time and will reevaluate with any new issues
--- NOTE | 2020-12-28 08:03 | PM.PNORT ---
Subjective Subjective Date of Service: 12/28/20 Interval history: POD1 s/p LTHA with Dr. Nichols. Patient is resting comfortably in bed. No overnight events. pain is well managed. No additional complaints. Physical Exam Vital Signs: Vital Signs: Last Vital Signs Temp 99 F 12/28/20 07:56 Pulse 71 12/28/20 07:56 Resp 18 12/28/20 07:56 BP 97/65 12/28/20 07:56 Pulse Ox 99 12/28/20 07:56 Body Mass Index 24.6 Const: General: cooperative, healthy appearing and no acute distress Resp: Effort & Inspection: normal respiratory effort and able to speak in complete sentences Cardio: Rate: regular rate Peripheral pulses: Peripheral pulses 2+ throughout GI: Palpation (GI): Soft to palpation Skin: Lesions: no lesions Rashes: no rashes Extrem: Other: Left hip Aquacel dressing is clean, dry, and intact. No drainage, ecchymosis, or redness. NVI. Procedures Date of Service Date of Service: 12/28/20 Progress Note: A&P Assessment and plan (1) Status post total hip replacement, left: Status: Acute Assessment and Plan: Continue pain mgmnt Begin ASA for dvt ppx Begin PT for LTHA Dispo planning-Pending PT eval, pain mgmnt Fall Risk Details Current Medications: Current Medications Generic Name Dose Route Start Last Admin Trade Name Freq PRN Reason Stop Dose Admin Acetaminophen 650 mg 12/27/20 19:16 12/28/20 04:30 Acetaminophen 325 Mg Tablet PO 650 mg Q6H PRN Administration Pain, Mild (Pain Scale 1-3) Aspirin 325 mg 12/28/20 11:00 Aspirin 325 Mg Tablet PO BID AMRITA Docusate Sodium 100 mg 12/27/20 21:00 12/27/20 20:22 Docusate Sodium 100 Mg Capsule PO 100 mg BID AMRITA Administration Efavirenz/Emtricitabine/Tenofovir 1 tab 12/28/20 09:00 Efavirenz/Emtricitab/Tenof Df 600/200/300 Tablet PO DAILY AMRITA Hydromorphone HCl 0.25 mg 12/27/20 19:16 Hydromorphone Hcl 0.5 Mg/0.5 Ml Syringe IVPUSH Q4H PRN Pain, Severe (Pain Scale 7-10) Protocol Dextrose/Sodium Chloride 1,000 mls @ 80 mls/hr 12/27/20 19:16 12/27/20 20:01 D51/2ns IVCONT 80 mls/hr .[id number] AMRITA Administration Cefazolin Sodium/Dextrose 2 gm in 50 mls @ 100 mls/hr 12/27/20 20:30 Ancef IV POSTOP AMRITA Ondansetron HCl 4 mg 12/27/20 19:16 Ondansetron Hcl 4 Mg/2 Ml Vial IVPUSH Q8H PRN Nausea and Vomiting Oxycodone HCl 5 mg 12/27/20 19:16 12/28/20 00:25 Oxycodone Hcl Immed Release 5 Mg Tablet PO 5 mg Q4H PRN Administration Pain, Moderate (Pain Scale 4-6 Oxycodone HCl 10 mg 12/27/20 21:00 12/27/20 20:21 Oxycodone Hcl Er 10 Mg Tab.Er.12h PO 10 mg BID AMRITA Administration Sodium Chloride 3 ml 12/27/20 19:16 12/28/20 00:26 0.9 % Sodium Chloride Flush 3 Ml Syringe IVFLUSH Not Given QSHIFT AMRITA Time Spent With Patient Time: Total time spent is greater than 50% in coordination of care (as documented) at patient's floor/unit and/or counseling patient: Time with patient: less than 15 minutes Quality Stroke Does the patient have a stroke diagnosis?: No VTE Prior VTE?: No VTE Risk Level:: Surgical - very high VTE Device Contraindication: N/A - Device Ordered VTE Drug Contraindication: N/A - Med Ordered
[2020-12-28] MEDS: Dextrose 5 % and 0.45 % NaCl 1,000 ML 80 ML IVCONT ×2 (08:56→21:35)
[2020-12-28] MEDS: 0.9 % Sodium Chloride Flush 3 ML SYRINGE IVFLUSH (08:56)
[2020-12-28] MEDS: oxyCODONE HCl ER 10 MG TAB.ER.12H PO ×2 (08:56→20:50)
[2020-12-28] MEDS: Docusate Sodium 100 MG CAPSULE PO ×2 (08:56→20:50)
[2020-12-28] MEDS: ondansetron HCL 4 MG/2 ML VIAL IVPUSH (09:09)
[2020-12-28] MEDS: Aspirin 325 MG TABLET PO ×2 (11:21→20:49)
--- NOTE | 2020-12-28 12:03 | MHC.CM.PN ---
Addendum entered by Jennifer Martínez 12/28/20 15:25: PT REPORTS SHE DID RECEIVE THE [facility] COVID-19 VACCINE AT [facility] AT 0800 HOURS ON Friday. 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 PT IS AWARE STR HAS BEEN RECOMMENDED AND SHE AGREES. PT REQUESTING REFERRALS TO [facility], AND [facility], IN NO PARTICULAR ORDER. IMM DELIVERED DC PLAN IS STR VIA [facility]. FACILITY TBD
[2020-12-28] MEDS: HYDROmorphone HCl 0.5 MG/0.5 ML SYRINGE 0.25 MG IVPUSH (13:17)
[2020-12-29] VITALS (7 sets, daily range): BP systolic 104–169; BP diastolic 60–69; PULSE 18–94; RESP 16–22; TEMP 36–37; O2SAT 95–99
[2020-12-29] MEDS: oxyCODONE HCl Immed Release 5 MG TABLET PO ×2 (02:48→08:38)
[2020-12-29 06:27] LABS: MANUAL DIFF FLAG NO
[2020-12-29 06:29] LABS: Basophils Percent Auto 0.3 % (0-2); Eosinophils Absolute Auto 0.1 X10*3/uL (0.0-0.4); Eosinophils Percent Auto 0.9 % (0-4); Hematocrit 29.2 % (37-47); Hemoglobin 9.9 g/dl (12.0-16.0); Imm Gran Abs Auto 0.06 X10*3/uL (0.00-0.03); Imm Gran Pct Auto 0.6 % (0.0-0.4); Lymphocytes Absolute Auto 1.6 X10*3/uL (1.2-4.9); Mean Corpuscular HGB Conc 33.9 g/dl (31.0-35.0); Mean Corpuscular Volume 103.2 fL (80-98); Mean Platelet Volume 10.5 fL (9.4-12.3); Monocytes Absolute Auto 0.8 X10*3/uL (0.1-1.2); Monocytes Percent Auto 7.9 % (2-11); Neutrophils Absolute Auto 7.2 X10*3/uL (2.0-8.3); Neutrophils Percent Auto 74.3 % (45-73); Platelet Count 197 X10*3/uL (160-400); Red Blood Count 2.83 X10*6/uL (4.20-5.50); Red Cell Distribution Width 14.5 % (11.0-16.0); White Blood Count 9.7 X10*3/uL (4.8-10.8)
[2020-12-29 06:49] LABS: Anion Gap 8 (12-20); Blood Urea Nitrogen 7 mg/dL (9-16); Calcium 7.8 mg/dL (8.4-10.2); Carbon Dioxide 25 mmol/L (22-29); Chloride 108 mmol/L (96-108); Creatinine Clr Calc Pharmacy 83.7; Estimated Glomerular Filt Rate > 60; Glucose Fasting 127 mg/dL (60-99); Potassium 3.4 mmol/L (3.3-5.1); Sodium 138 mmol/L (135-145)
--- NOTE | 2020-12-29 08:23 | MHC.CM.PN ---
Addendum entered by Jennifer Martínez 12/29/20 13:19: PT ACCEPTING BED OFFER EXTENDED BY [facility]. PT WILL BE SET UP FOR [facility]AN TRANSPORT AT 1600 HOURS VIA [facility] TODAY Addendum entered by Jennifer Martínez 12/29/20 11:30: [facility] CLARIFIED THEY ARE OFFERING A BED AT A SISTER FACILITY, [facility]. BASED ON EARLIER CONVERSATION WITH PT, SHE PREFERS TO STAY IN [facility]. REFERRAL SENT TO [facility]. PT IS READY TO DC TODAY ONCE A BED IS SECURED. Addendum entered by Jennifer Martínez 12/29/20 09:27: [facility] OFFERING A BED HOWEVER THEY WILL NEED PT TO BRING HER ATRIPLA MEDICATION FROM HOME. PT REPORTS SHE CAN HAVE HER SON BRING IT TO THE SNF. CURRENT DC PLAN IS STR AT [facility] VIA BLS Original Note: PT WILL NEED TO DC TO [facility] AND [facility] BOTH FOLLOWING, CURRENTLY AWAITING RESPONSE REGARDING BED AVAILABILITY.
[2020-12-29] MEDS: oxyCODONE HCl ER 10 MG TAB.ER.12H PO (08:38)
[2020-12-29] MEDS: Docusate Sodium 100 MG CAPSULE PO (08:38)
[2020-12-29] MEDS: Acetaminophen 325 MG TABLET 650 MG PO (08:39)
[2020-12-29] MEDS: Aspirin 325 MG TABLET PO (08:39)
--- NOTE | 2020-12-29 13:28 | PM.DS ---
DS: Providers Provider Date of Service: 12/29/20 Date of admission: 12/27/20 12:16 Primary care physician: Unknown Physician Consults: 12/27/20 19:16 Consult to Hospitalist Routine Consulting Provider: Hospitalist Reason For Exam: routine medical management DS: Diagnosis Discharge Diagnosis (1) HIV (human immunodeficiency virus infection): Status: Acute (2) Osteoarthritis of left hip: Status: Acute DS: Summary Hospital Course Hospital Course: The patient underwent a successful left total hip arthroplasty, was transferred to PACU and then to the floor to recover. During their stay, their vitals were stable, afebrile at 98.3 . Labs were unremarkable, H/H 9.9/29.2 . POD 1 she was started on aspirin for DVT ppx, they also received physical therapy and occupational therapy services twice a day. Prior to discharge, their dressing was change, incision clean dry and intact, new Aquacel dressing applied and the plan was to be discharged Time Spent with Patient Time attestation: Total time spent providing and/or coordinating discharge services: Discharge coordination time: Less than 30 minutes Quality: Stroke Does the patient have a stroke diagnosis?: No Physical Exam Vital Signs: Vital Signs: Last Vital Signs Temp 97.2 F 12/29/20 11:33 Pulse 80 12/29/20 13:14 Resp 16 12/29/20 11:33 BP 117/64 12/29/20 13:14 Pulse Ox 99 12/29/20 13:14 Body Mass Index 24.6 Const: General: cooperative, healthy appearing and no acute distress Resp: Effort & Inspection: normal respiratory effort and able to speak in complete sentences Cardio: Rate: regular rate Peripheral pulses: Peripheral pulses 2+ throughout GI: Palpation (GI): Soft to palpation Skin: General skin exam: no rashes or lesions noted Extrem: Other: incision clean dry and intact. Shanti intact. No erythema or effusion. Calf supple nontender. Neurovascularly intact. DS: Data Data Completed and Pending Pending studies at discharge: Pending at discharge 12/27/20 15:24 Surgical [PTH] Routine Labs on day of discharge: Laboratory Results - last 24 hr 12/29/20 12/29/20 05:56 05:56 WBC 9.7 RBC 2.83 L Hgb 9.9 L Hct 29.2 L MCV 103.2 H MCH 35.0 H MCHC 33.9 RDW 14.5 Plt Count 197 MPV 10.5 Immature Gran % (Auto) 0.6 H Neut % (Auto) 74.3 H Lymph % (Auto) 16.0 L Greene % (Auto) 7.9 Eos % (Auto) 0.9 Baso % (Auto) 0.3 Lymph # (Auto) 1.6 Greene # (Auto) 0.8 Eos # (Auto) 0.1 Baso # (Auto) 0.0 Abs Immat Gran (auto) 0.06 H Absolute Neuts (auto) 7.2 Absolute Nucleated RBC 0.000 Nucleated RBC % (auto) 0.0 Sodium 138 Potassium 3.4 Chloride 108 Carbon Dioxide 25 Anion Gap 8 L BUN 7 L D Creatinine 0.66 Estim Creat Clear Calc 83.7 Estimated GFR > 60 Fasting Glucose 127 H Calcium 7.8 L D Discharge Plan Discharge Patient Disposition: Xfer SNF Discharge Diagnosis: s/p left total hip arthroplasty Referrals: Cristiano Honeycutt [Outside] - 1 Week Art Francisco PA-C [Physician Filter Tank Tender Helper Head] - 2 Weeks (01/11/21 1:15 [facility]geons Art Francisco PA-C) Discharge Medications: New oxycodone 5 mg Tablet 5 mg PO Q4H PRN (Reason: Pain, Moderate (Pain Scale 4-6) 7 Days Qty: 42 RF: 0 acetaminophen 325 mg Tablet 650 mg PO Q6H PRN (Reason: Pain, Mild (Pain Scale 1-3)) 30 Days Qty: 240 RF: 0 aspirin 325 mg Tablet 325 mg PO BID 42 Days Qty: 84 RF: 0 docusate sodium 100 mg Capsule 100 mg PO BID PRN (Reason: constipation) 14 Days Qty: 14 RF: 0 Continued aiwuhtnrc-ehpftvepzidb-lflplsi [Atripla] 600-200-300 mg tablet 1 tab PO DAILY RF: 0 Atripla 600-200-300 mg tablet 1 tab PO BEDTIME 30 Days Qty: 30 RF: 5 Discharge Orders: Discharge Order (Routine); Ordered 12/29/20 Ordered By: Art Francisco Diet: regular diet Activity on Discharge: Use cane or walker Stand Alone Forms: Patient Portal Discharge page Activity Restrictions/Additional Instructions: Physical Therapy for total hip arthroplasty: posterior precautions, gait training, ROM, strength Limit stair climbing No showering, no tub bath-keep dressing clean, dry and intact No driving x6 weeks Continue Aspirin tabs once a day x 6 weeks Follow up with [facility] Orthopedics in 2 weeks Care Plan Goals: restore fxn to left hip Health Concerns: none Plan of Treatment: Physical Therapy for total hip arthroplasty: posterior precautions, gait training, ROM, strength Limit stair climbing No showering, no tub bath-keep dressing clean, dry and intact No driving x6 weeks Continue Aspirin tabs once a day x 6 weeks Follow up with [facility] Orthopedics in 2 weeks Assessment: Stable for D/C
[2020-12-29 14:51] LABS: COVID-19 Test Negative (Negative); IDNOW Serial# 9DD0AD1C
== END 2020-12-29 16:21 | disposition skilled nursing facility (03) | DRG 470 ==
LOC: HO.SSSA 12:18 → HO.S3 18:52
PROVIDERS: Physician Assistant; Admitting Provider Orthopaedic Surgery; PCP Internal Medicine; Visit Provider Orthopaedic Surgery
PROC: 0SRB0JA Replacement of Left Hip Joint with Synthetic Substitute, Uncemented, Open Approach (ICD-10-PCS; CPT 27130; principal; 2020-12-27 14:10)
DX: M16.12 Unilateral primary osteoarthritis, left hip (principal); Z21 Asymptomatic human immunodeficiency virus [HIV] infection status; Z20.822 Contact with and (suspected) exposure to COVID-19; F17.210 Nicotine dependence, cigarettes, uncomplicated; Z71.6 Tobacco abuse counseling; Z79.899 Other long term (current) drug therapy
CPT/HCPCS: 36415; 72170; 80048; 85025; 86850; 86900; 86901; 87635; 87640; 87641; 88304; 88311; 97110; 97116; 97162; 97166; 97535; C1776; J0131; J0690; J1100; J1170; J2250; J2370; J2405; J3010

== ENCOUNTER → 2021-01-11 13:12 | Outpatient (BNVA) | payer MEDICARE, MEDICAID, SELFPAY | PROVIDERS: Visit Provider Physician Assistant | DX: Z47.1 Aftercare following joint replacement surgery (principal); Z96.642 Presence of left artificial hip joint | CPT/HCPCS: 99212 ==

== ENCOUNTER 2021-02-08 11:42 | Outpatient (REF) | payer MEDICARE, MEDICAID, SELFPAY ==
--- NOTE | ~2021-02-08 | XR_ITS ---
EXAMINATION: XR PELVIS XR HIP, LEFT CLINICAL INFORMATION: Pain in the left hip COMPARISON: 12/27/2020 TECHNIQUE: AP view of the pelvis. Crosstable lateral view of the left hip. FINDINGS: There is a total left hip arthroplasty. The femoral head component articulates appropriately with the acetabular component. No periprosthetic lucency or fracture. The right hip is well aligned with mild degenerative change. There is joint space narrowing with sclerosis and small osteophytes. The pelvic rim is intact. The sacroiliac joints and pubic symphysis are intact. Nonobstructive bowel gas pattern. XR/XR pelvis 1-2V IMPRESSION: Total left hip arthroplasty in typical positioning and alignment.
--- NOTE | ~2021-02-08 | XR_ITS ---
EXAMINATION: XR PELVIS XR HIP, LEFT CLINICAL INFORMATION: Pain in the left hip COMPARISON: 12/27/2020 TECHNIQUE: AP view of the pelvis. Crosstable lateral view of the left hip. FINDINGS: There is a total left hip arthroplasty. The femoral head component articulates appropriately with the acetabular component. No periprosthetic lucency or fracture. The right hip is well aligned with mild degenerative change. There is joint space narrowing with sclerosis and small osteophytes. The pelvic rim is intact. The sacroiliac joints and pubic symphysis are intact. Nonobstructive bowel gas pattern. XR/XR hip LT 1V IMPRESSION: Total left hip arthroplasty in typical positioning and alignment.
== END 2021-02-08 11:43 | disposition home or self-care (01) ==
LOC: HO.HOSX 11:42
PROVIDERS: Visit Provider Orthopaedic Surgery
DX: Z47.1 Aftercare following joint replacement surgery (principal); Z96.642 Presence of left artificial hip joint
CPT/HCPCS: 72170; 73501; 99212

== ENCOUNTER 2021-02-13 13:00 | Outpatient (RCR) | payer MEDICARE, MEDICAID, SELFPAY ==
--- NOTE | 2021-01-31 15:00 | MHC.PT.EP ---
[facility] [place] Office [place] Office [address] Jennifer Alcaraz [address] [phone] F: [phone] F: [phone] F: [phone] F: [phone] Physical Therapy Plan of Care Date of Evaluation: Date of Surgery: 12/27/20 Diagnosis: L ROBEL, posterior approach Assessment: 60 y/o F s/p L ROBEL with posterior precautions on 12/27/20. She was d/c home and then had home PT for 4 weeks. She initially used RW and then transitioned to SPC and now uses no assistive device. Reports pain and difficulty with sleeping, dressing, don/doffing shoes, stairs, desktop support engineer, and walking>10min. Examination shows decreased L hip AROM (maintained precautions), decreased B LE strength, increased pain at L trochanteric bursa and anterior hip, mild hypomobility of scar, and impaired gait pattern. Recommend PT 2x/week for 4 weeks to address impairments, implement HEP, and optimize functional mobility. Frequency and Duration: The patient will be seen 2x/week for 4 weeks Short Term Goals: 2 weeks 1. I with HEP 2. Improve L hip abd by 5 degrees 3. Normal scar mobility Nursing Home Goals: 4 weeks 1. I with HEP and self management of sx 2. Pt will be able to ambulate > 30min without antalgic gait 3. Pt will be able to ascend/descend stairs with step through pattern and railing Treatment Plan: Modalities to reduce pain, spasms and effusion. Manual therapy to restore motion and function. Therapeutic exercise to improve strength and flexibility. Neuromuscular re-education for posture and balance. Therapeutic activities to return to functional activities of daily living. Electronically signed by: Rose Mcdaniel PT Please sign and return to therapist. Thank you for your referral.
--- NOTE | 2021-03-01 14:18 | MHC.PT.DC ---
[facility] [place] Office [place] Office [place] Office [address] Jennifer Alcaraz [address] [phone] F: [phone] F: [phone] F: [phone] F: [phone] Physical Therapy Discharge Report Diagnosis: L ROBEL, posterior approach Date of Surgery: 12/27/20 Date of Evaluation: 01/31/21 Date of Discharge: 03/01/21 Treatments to Date: 3 Cancellations to Date: 2 No Shows to Date: 3 Discharge Status: Independent with HEP Visit Non-compliance Discharge Summary: Pt was making good progress with HEP and function, however she then had 2 cancellation and 3 no shows. D/c secondary to noncompliance with scheduling policy. Electronically signed by: Rose Mcdaniel PT Please sign and return to therapist. Thank you for your referral.
== END 2021-03-01 14:29 | disposition home or self-care (01) ==
LOC: HO.PT 13:00
PROVIDERS: Visit Provider Physician Assistant
DX: Z96.642 Presence of left artificial hip joint (principal)
CPT/HCPCS: 97110; 97112; 97161; 97530

== ENCOUNTER → 2021-02-13 14:16 | Outpatient (BNVA) | payer MEDICARE, MEDICAID, SELFPAY | PROVIDERS: PCP Internal Medicine; Visit Provider Internal Medicine | DX: B20 Human immunodeficiency virus [HIV] disease (principal) | CPT/HCPCS: 99212 ==

== ENCOUNTER 2021-08-13 13:38 | Outpatient (REF) | payer OTHER, MEDICAID, SELFPAY ==
[2021-08-13 14:21] LABS: MANUAL DIFF FLAG NO
[2021-08-13 14:43] LABS: Basophils Absolute Auto 0.1 X10*3/uL (0.0-0.2); Eosinophils Absolute Auto 0.4 X10*3/uL (0.0-0.4); Eosinophils Percent Auto 4.2 % (0-4); Hematocrit 39.1 % (37.0-47.0); Hemoglobin 13.3 g/dl (12.0-16.0); Imm Gran Abs Auto 0.03 X10*3/uL (0.00-0.03); Imm Gran Pct Auto 0.3 % (0.0-0.4); Lymphocytes Absolute Auto 3.8 X10*3/uL (1.2-4.9); Lymphocytes Percent Auto 43.4 % (20-40); Mean Corpuscular Hemoglobin 34.2 pg (27.0-33.0); Mean Corpuscular Volume 100.5 fL (80.0-98.0); Mean Platelet Volume 10.2 fL (9.4-12.3); Monocytes Absolute Auto 0.5 X10*3/uL (0.1-1.2); Monocytes Percent Auto 6.1 % (2-11); Platelet Count 322 X10*3/uL (160-400); Red Blood Count 3.89 X10*6/uL (4.20-5.50); Red Cell Distribution Width 13.4 % (11.0-16.0); White Blood Count 8.8 X10*3/uL (4.8-10.8)
[2021-08-13 15:13] LABS: Alanine Aminotransferase 15 U/L (0-31); Albumin Level 4.3 g/dL (3.5-5.0); Alkaline Phosphatase 123 U/L (39-117); Anion Gap 11 (12-20); Aspartate Amino Transferase 16 U/L (5-31); Bilirubin Direct < 0.2 mg/dL (0.0-0.5); Bilirubin Total 0.4 mg/dL (0.0-1.0); Blood Urea Nitrogen 16 mg/dL (9-16); Calcium 9.9 mg/dL (8.4-10.2); Carbon Dioxide 29 mmol/L (22-29); Chloride 105 mmol/L (96-108); Estimated Glomerular Filt Rate > 60; Glucose Random 95 mg/dL (60-115); Potassium 4.1 mmol/L (3.3-5.1); Sodium 141 mmol/L (135-145); Total Protein 7.3 g/dL (6.5-8.0)
[2021-08-14 04:39] LABS: ~HepC Num1 0.22 S/CO (0.00-0.79); ~Hepatitis C Antibody Nonreactive (Nonreactive)
[2021-08-15 15:52] LABS: Absolute CD3 Count 3330 cells/uL (840-3060); Absolute CD4 Count 2129 cells/uL (490-1740); Absolute CD8 Count 1302 cells/uL (180-1170); Absolute Lymphocytes 4218 cells/uL (850-3900); CD4 CD8 Ratio 1.64 (0.86-5.00); Percent CD3 Cells 79 % (57-85); Percent CD4 Cells 50 % (30-61); Percent CD8 Cells 31 % (12-42)
[2021-08-15 21:17] LABS: HIV RNA PCR Qn Copies 129 copies/mL (NOT DETECTED); HIV RNA PCR Qn Log Copies 2.11 (NOT DETECTED)
== END 2021-08-13 13:39 | disposition home or self-care (01) ==
LOC: HO.LAB 13:38
PROVIDERS: PCP Internal Medicine; Visit Provider Internal Medicine
DX: B20 Human immunodeficiency virus [HIV] disease (principal); M16.12 Unilateral primary osteoarthritis, left hip; Z86.16 Personal history of COVID-19; Z79.899 Other long term (current) drug therapy
CPT/HCPCS: 36415; 80048; 80076; 85025; 86359; 86360; 86803; 87536; 99212

== ENCOUNTER 2022-02-13 07:52 | Outpatient (REF) | payer OTHER, MEDICAID, SELFPAY ==
[2022-02-13 10:30] LABS: Hematocrit 39.9 % (37.0-47.0); Hemoglobin 13.7 g/dl (12.0-16.0); Mean Corpuscular HGB Conc 34.3 g/dl (31.0-35.0); Mean Corpuscular Hemoglobin 33.6 pg (27.0-33.0); Mean Corpuscular Volume 97.8 fL (80.0-98.0); Mean Platelet Volume 10.6 fL (9.4-12.3); Platelet Count 305 X10*3/uL (160-400); Red Blood Count 4.08 X10*6/uL (4.20-5.50); Red Cell Distribution Width 13.4 % (11.0-16.0); White Blood Count 9.1 X10*3/uL (4.8-10.8)
[2022-02-13 10:39] LABS: Alanine Aminotransferase 21 U/L (0-31); Albumin Level 4.3 g/dL (3.5-5.0); Alkaline Phosphatase 147 U/L (39-117); Anion Gap 14 (12-20); Aspartate Amino Transferase 17 U/L (5-31); Bilirubin Direct < 0.2 mg/dL (0.0-0.5); Bilirubin Total 0.2 mg/dL (0.0-1.0); Blood Urea Nitrogen 13 mg/dL (9-16); Calcium 9.4 mg/dL (8.4-10.2); Carbon Dioxide 26 mmol/L (22-29); Chloride 106 mmol/L (96-108); Estimated Glomerular Filt Rate > 60; Glucose Random 105 mg/dL (60-115); Potassium 3.9 mmol/L (3.3-5.1); Sodium 142 mmol/L (135-145); Total Protein 7.1 g/dL (6.5-8.0)
[2022-02-13 11:01] LABS: Syphilis Screen Nonreactive (Nonreactive)
[2022-02-14 13:15] LABS: HCV Log PCR <1.18 NOT DETECTED Log IU/mL (NOT DETECTED); HepC Viral Load <15 NOT DETECTED IU/mL (NOT DETECTED)
[2022-02-14 20:41] LABS: HIV RNA PCR Qn Copies 182 copies/mL (NOT DETECTED); HIV RNA PCR Qn Log Copies 2.26 (NOT DETECTED)
[2022-02-15 15:07] LABS: Absolute CD3 Count 2942 cells/uL (840-3060); Absolute CD4 Count 1888 cells/uL (490-1740); Absolute CD8 Count 1122 cells/uL (180-1170); Absolute Lymphocytes 4486 cells/uL (850-3900); CD4 CD8 Ratio 1.68 (0.86-5.00); Percent CD3 Cells 66 % (57-85); Percent CD4 Cells 42 % (30-61); Percent CD8 Cells 25 % (12-42)
== END 2022-02-13 07:53 | disposition home or self-care (01) ==
LOC: HO.10HDL 07:52
PROVIDERS: Visit Provider Internal Medicine
DX: B20 Human immunodeficiency virus [HIV] disease (principal)
CPT/HCPCS: 36415; 80048; 80076; 85027; 86359; 86360; 86780; 87522; 87536

== ENCOUNTER → 2022-02-25 14:01 | Outpatient (BNVA) | payer OTHER, MEDICAID, SELFPAY | PROVIDERS: PCP Internal Medicine; Visit Provider Internal Medicine | DX: B20 Human immunodeficiency virus [HIV] disease (principal) | CPT/HCPCS: 99212 ==

== ENCOUNTER 2022-08-05 11:48 | Outpatient (REF) | payer OTHER, SELFPAY ==
[2022-08-06 15:47] LABS: Absolute CD3 Count 1471 cells/uL (840-3060); Absolute CD4 Count 928 cells/uL (490-1740); Absolute CD8 Count 581 cells/uL (180-1170); Absolute Lymphocytes 1958 cells/uL (850-3900); Percent CD3 Cells 75 % (57-85); Percent CD4 Cells 47 % (30-61); Percent CD8 Cells 30 % (12-42)
[2022-08-07 03:41] LABS: Syphilis Screen Nonreactive (Nonreactive)
[2022-08-08 15:28] LABS: HIV RNA PCR Qn Copies 71 copies/mL (NOT DETECTED); HIV RNA PCR Qn Log Copies 1.85 (NOT DETECTED)
== END 2022-08-05 11:49 | disposition home or self-care (01) ==
LOC: HO.LAB 11:48
PROVIDERS: Visit Provider Internal Medicine
DX: B20 Human immunodeficiency virus [HIV] disease (principal)
CPT/HCPCS: 36415; 86359; 86360; 86780; 87536

== ENCOUNTER → 2022-08-23 13:16 | Outpatient (BNVA) | payer OTHER, SELFPAY | PROVIDERS: PCP Internal Medicine; Visit Provider Internal Medicine ==

== ENCOUNTER 2022-09-17 11:19 | Outpatient (REF) | payer OTHER, SELFPAY ==
[2022-09-17 13:11] LABS: MANUAL DIFF FLAG NO
[2022-09-17 13:24] LABS: Basophils Absolute Auto 0.1 X10*3/uL (0.0-0.2); Basophils Percent Auto 0.9 % (0-2); Eosinophils Absolute Auto 0.2 X10*3/uL (0.0-0.4); Eosinophils Percent Auto 2.7 % (0-4); Hematocrit 37.5 % (37.0-47.0); Hemoglobin 12.7 g/dl (12.0-16.0); Imm Gran Abs Auto 0.02 X10*3/uL (0.00-0.03); Imm Gran Pct Auto 0.3 % (0.0-0.4); Lymphocytes Absolute Auto 2.4 X10*3/uL (1.2-4.9); Lymphocytes Percent Auto 36.1 % (20-40); Mean Corpuscular HGB Conc 33.9 g/dl (31.0-35.0); Mean Corpuscular Hemoglobin 34.4 pg (27.0-33.0); Mean Corpuscular Volume 101.6 fL (80.0-98.0); Mean Platelet Volume 11.2 fL (9.4-12.3); Monocytes Absolute Auto 0.5 X10*3/uL (0.1-1.2); Monocytes Percent Auto 7.7 % (2-11); Neutrophils Absolute Auto 3.5 x10*3/uL (2.0-8.3); Neutrophils Percent Auto 52.3 % (45-73); Platelet Count 253 X10*3/uL (160-400); Red Blood Count 3.69 X10*6/uL (4.20-5.50); Red Cell Distribution Width 13.9 % (11.0-16.0); White Blood Count 6.7 X10*3/uL (4.8-10.8)
[2022-09-17 13:27] LABS: Appearance Urine Clear; Color Urine Yellow; Glucose Urine UA Negative (Negative); Leukocyte Esterase Urine Negative (Negative); Nitrite Urine Negative (Negative); Urine Blood Negative (Negative); Urine Ketones Negative (Negative); Urine Protein Negative (Neg-Trace)
[2022-09-17 13:38] LABS: Alanine Aminotransferase 11 U/L (0-31); Albumin Level 4.1 g/dL (3.5-5.0); Alkaline Phosphatase 110 U/L (39-117); Anion Gap 10 (12-20); Aspartate Amino Transferase 11 U/L (5-31); Bilirubin Total 0.4 mg/dL (0.0-1.0); Blood Urea Nitrogen 12 mg/dL (9-16); C Reactive Protein 0.68 mg/dL (< or = 0.50); Calcium 9.7 mg/dL (8.4-10.2); Carbon Dioxide 30 mmol/L (22-29); Chloride 106 mmol/L (96-108); Estimated Glomerular Filt Rate > 60; Glucose Random 83 mg/dL (60-115); Potassium 4.3 mmol/L (3.3-5.1); Sodium 142 mmol/L (135-145); Total Protein 6.9 g/dL (6.5-8.0)
== END 2022-09-17 11:20 | disposition home or self-care (01) ==
LOC: HO.10HDL 11:19
PROVIDERS: Visit Provider Internal Medicine
DX: R10.9 Unspecified abdominal pain (principal); J30.1 Allergic rhinitis due to pollen
CPT/HCPCS: 36415; 80053; 81003; 82550; 85025; 86140; 87086

== ENCOUNTER 2022-09-20 14:19 | Outpatient (REF) | payer OTHER, SELFPAY ==
--- NOTE | ~2022-09-20 | US_ITS ---
EXAMINATION: US RETROPERITONEAL LIMITED (RENAL ONLY) CLINICAL INFORMATION: Right flank pain. COMPARISON: CT abdomen and pelvis 09/15/2014. TECHNIQUE: Real-time imaging of the kidneys. FINDINGS: RIGHT KIDNEY: 10.2 x 3.9 x 4.6 cm (SAG x AP x TRV). The kidney is normal in size, contour, and echogenicity. Renal cortical thickness is normal. No calculi or focal parenchymal lesions. No hydronephrosis. LEFT KIDNEY: 10.7 x 4.7 x 5.4 cm (SAG x AP x TRV). The kidney is normal in size, contour, and echogenicity. Renal cortical thickness is normal. No calculi or focal parenchymal lesions. No hydronephrosis. Incidental note made of an echogenic liver consistent with hepatic steatosis which was appreciated on the 09/15/2014 CT scan as well. US/US renal BI IMPRESSION: Normal-appearing kidneys. Incidentally noted hepatic steatosis.
== END 2022-09-20 14:20 | disposition home or self-care (01) ==
LOC: HO.US 14:19
PROVIDERS: PCP Internal Medicine; Visit Provider Internal Medicine
DX: R10.9 Unspecified abdominal pain (principal)
CPT/HCPCS: 76775

== ENCOUNTER 2022-10-18 15:48 | Outpatient (REF) | payer OTHER, SELFPAY ==
[2022-10-21 15:38] LABS: Absolute CD3 Count 2714 cells/uL (840-3060); Absolute CD4 Count 1788 cells/uL (490-1740); Absolute CD8 Count 1009 cells/uL (180-1170); Absolute Lymphocytes 3698 cells/uL (850-3900); CD4 CD8 Ratio 1.77 (0.86-5.00); Percent CD3 Cells 73 % (57-85); Percent CD4 Cells 48 % (30-61); Percent CD8 Cells 27 % (12-42)
== END 2022-10-18 15:49 | disposition home or self-care (01) ==
LOC: HO.LAB 15:48
PROVIDERS: Visit Provider Internal Medicine
DX: B20 Human immunodeficiency virus [HIV] disease (principal)
CPT/HCPCS: 36415; 86359; 86360; 87536

== ENCOUNTER 2022-10-30 15:05 | Outpatient (REF) | payer OTHER, SELFPAY ==
[2022-11-02 09:33] LABS: Absolute CD3 Count 2546 cells/uL (840-3060); Absolute CD4 Count 1694 cells/uL (490-1740); Absolute CD8 Count 902 cells/uL (180-1170); Absolute Lymphocytes 3338 cells/uL (850-3900); CD4 CD8 Ratio 1.88 (0.86-5.00); Percent CD3 Cells 76 % (57-85); Percent CD4 Cells 51 % (30-61); Percent CD8 Cells 27 % (12-42)
== END 2022-10-30 15:06 | disposition home or self-care (01) ==
LOC: HO.LAB 15:05
PROVIDERS: PCP Internal Medicine; Visit Provider Internal Medicine
DX: B20 Human immunodeficiency virus [HIV] disease (principal)
CPT/HCPCS: 36415; 86359; 86360; 87536

== ENCOUNTER 2022-11-27 15:31 | Outpatient (REF) | payer OTHER, SELFPAY ==
[2022-12-03 09:14] LABS: HIV RNA PCR Qn Copies 291 copies/mL (NOT DETECTED); HIV RNA PCR Qn Log Copies 2.46 (NOT DETECTED)
== END 2022-11-27 15:32 | disposition home or self-care (01) ==
LOC: HO.LAB 15:31
PROVIDERS: Visit Provider Internal Medicine
DX: B20 Human immunodeficiency virus [HIV] disease (principal)
CPT/HCPCS: 36415; 87536

== ENCOUNTER 2022-12-11 14:54 | Outpatient (REF) | payer OTHER, SELFPAY ==
[2022-12-12 08:25] LABS: HBS Num1 0.11 mIU/mL (0-7.99); Hepatitis B Core Antibody Nonreactive (Nonreactive); Hepatitis B Surface Antigen Negative (Negative); ~Hepatitis B Surface Antibody NONREACTIVE (Nonreactive)
[2022-12-12 14:47] LABS: HIV RNA PCR Qn Copies 168 copies/mL (NOT DETECTED); HIV RNA PCR Qn Log Copies 2.23 (NOT DETECTED)
[2022-12-13 08:28] LABS: Syphilis Screen Nonreactive (Nonreactive)
[2022-12-13 09:14] LABS: HCV Log PCR <1.18 NOT DETECTED Log IU/mL (NOT DETECTED); HepC Viral Load <15 NOT DETECTED IU/mL (NOT DETECTED)
== END 2022-12-11 14:55 | disposition home or self-care (01) ==
LOC: HO.LAB 14:54
PROVIDERS: PCP Internal Medicine; Visit Provider Internal Medicine
DX: B20 Human immunodeficiency virus [HIV] disease (principal)
CPT/HCPCS: 36415; 86704; 86706; 86780; 87340; 87522; 87536; 99212

== ENCOUNTER 2022-12-11 14:54 | Outpatient (AMB) | payer OTHER, SELFPAY ==
[2022-12-11 14:54] VITALS: BP 130/70; PULSE 89; O2SAT 98; BMI 28.5
--- NOTE | 2022-12-11 14:54 | A.OFFVIS_ITS ---
Intake Vital Signs 12/11/22 14:54 Height 5 ft 4 in Weight 166 lb BMI 28.5 BP 130/70 Blood Pressure Location Lt brachial Position Sitting Pulse 89 Pulse Source Pulse Oximeter Pulse Oximetry (%) 98 Intake Visit Reasons: 3 mth ,HIV,f/u Allergies No Known Allergies [No Known Allergies*] Allergy (Verified 12/11/22 14:58) HPI 3 mth ,HIV,f/u HPI Details She is here for followup HIV. She has CD4 count of 1694 on 10/30 and viral load 291. She has not liked Biktarvy and feels bloating and weight gain but her weight has gone up and down. She had been on Atripla in the past. She sees Dr Landeros. COUNTS INCLUDE 234 BEDS AT THE [facility] Medical History Arthritis COVID-19 vaccine series completed History of COVID-19 HIV (human immunodeficiency virus infection) Osteoarthritis of left hip Surgical History History of colonoscopy Hx laparoscopic cholecystectomy Hx of rectal sphincterotomy Family History Mother Diabetes Social History Household Members: Children Housing: House Are you a primary critical care paramedic to a significant other at home: No Do you presently have visiting nurse or other home services: No Patient Tobacco Use Status: Current everyday Tobacco user Tobacco use type: Cigarette Cigarettes Per Day: 3 Years Smoked: 41 Advance Directives Date on File: 01/19/20 service: No Current occupational status: unemployed Current occupation: rt handed Review of Systems Const All systems reviewed & are unremarkable except as noted in HPI and below Physical Exam Vital Signs: Last Vital Signs Pulse 89 12/11/22 14:54 BP 130/70 12/11/22 14:54 Pulse Ox 98 12/11/22 14:54 BMI result Body Mass Index 28.5 Const General: cooperative Orientation/consciousness: patient oriented x3 HEENT Head: Yes normal to inspection Mouth: Normal oral and palatal mucosa present Eyes General: appearance normal, both eyes and all related structures Pupils: Equal, round and reactive pupils present Resp Effort & Inspection: normal respiratory effort Cardio Rate: regular rate Rhythm: regular rhythm GI Palpation (GI): Soft to palpation and nontender General: Yes no CVA tenderness Back/Spine/Pelvis Back: no CVA tenderness Skin General skin exam: no rashes or lesions noted Neuro General: patient oriented x3 Cranial nerves: Yes CN's II-XII intact bilaterally and Yes Equal, round and reactive pupils present Extrem General: Yes normal to inspection Psych Appearance: grossly normal Assessment & Plan Assessment & Plan (1) HIV (human immunodeficiency virus infection): Comment: She has started Biktarvy last time and has switched off Atripla. Now she feels that it has caused weight gain and fatigue. She has no known mutations but despite switching to Biktarvy and reported daily adherence has increased viral load to 291. Code(s): B20 - Human immunodeficiency virus [HIV] disease Plan: Check proviral DNA since viral load under 1,000 to look for mutations as well as check HIV viral load again. If no mutations found and no Hepatitis B found switch to Dovato (lamivudine and dolutegravir) which may be easier to tolerate than Biktarvy. Continue Biktarvy for now and determine possible new regimen based on information above. See in three months. Orders: Orders HIV-1 RNA QN PCR Expanded Today B20 - Human immunodeficiency virus [HIV] disease Other Ref Test - Misc Today B20 - Human immunodeficiency virus [HIV] disease HIV-1 RNA QN PCR Expanded Today B20 - Human immunodeficiency virus [HIV] disease Hepatitis B Surface Antibody Today B20 - Human immunodeficiency virus [HIV] disease Hepatitis B Core Antibody Today B20 - Human immunodeficiency virus [HIV] disease Hepatitis B Surface Antigen Today B20 - Human immunodeficiency virus [HIV] disease Hepatitis C Viral Load Today B20 - Human immunodeficiency virus [HIV] disease Syphilis Screen Today B20 - Human immunodeficiency virus [HIV] disease Coding Level of Care Code Est Pt Level 3 (25111) Diagnoses HIV (human immunodeficiency virus infection) B20
== END 2022-12-11 15:23 | disposition home or self-care (01) ==
LOC: HO.HID 14:54
PROVIDERS: PCP Internal Medicine; Visit Provider Internal Medicine
DX: B20 Human immunodeficiency virus [HIV] disease (principal)
CPT/HCPCS: 99213

== ENCOUNTER 2023-02-19 15:03 | Outpatient (REF) | payer OTHER, SELFPAY ==
[2023-02-19 15:25] LABS: MANUAL DIFF FLAG NO
[2023-02-19 15:39] LABS: Basophils Absolute Auto 0.1 X10*3/uL (0.0-0.2); Basophils Percent Auto 0.7 % (0-2); Eosinophils Absolute Auto 0.2 X10*3/uL (0.0-0.4); Eosinophils Percent Auto 3.6 % (0-4); Hematocrit 38.7 % (37.0-47.0); Imm Gran Abs Auto 0.01 X10*3/uL (0.00-0.03); Imm Gran Pct Auto 0.1 % (0.0-0.4); Lymphocytes Absolute Auto 3.1 X10*3/uL (1.2-4.9); Lymphocytes Percent Auto 46.4 % (20-40); Mean Corpuscular HGB Conc 33.6 g/dl (31.0-35.0); Mean Corpuscular Hemoglobin 32.6 pg (27.0-33.0); Mean Platelet Volume 10.2 fL (9.4-12.3); Monocytes Absolute Auto 0.6 X10*3/uL (0.1-1.2); Monocytes Percent Auto 8.8 % (2-11); Neutrophils Absolute Auto 2.7 x10*3/uL (2.0-8.3); Neutrophils Percent Auto 40.4 % (45-73); Platelet Count 262 X10*3/uL (160-400); Red Blood Count 3.99 X10*6/uL (4.20-5.50); Red Cell Distribution Width 13.3 % (11.0-16.0); White Blood Count 6.7 X10*3/uL (4.8-10.8)
[2023-02-19 16:02] LABS: Alanine Aminotransferase 23 U/L (0-31); Alkaline Phosphatase 93 U/L (39-117); Anion Gap 9 (12-20); Aspartate Amino Transferase 18 U/L (5-31); Bilirubin Direct 0.1 mg/dL (0.0-0.5); Bilirubin Total 0.3 mg/dL (0.0-1.0); Blood Urea Nitrogen 11 mg/dL (9-16); Calcium 9.5 mg/dL (8.4-10.2); Carbon Dioxide 31 mmol/L (22-29); Chloride 106 mmol/L (96-108); Estimated Glomerular Filt Rate 54; Glucose Random 86 mg/dL (60-115); Potassium 3.6 mmol/L (3.3-5.1); Sodium 142 mmol/L (135-145); Total Protein 7.1 g/dL (6.5-8.0)
[2023-02-20 05:08] LABS: ~HepC Num1 0.09 S/CO (0.00-0.79); ~Hepatitis C Antibody Nonreactive (Nonreactive)
[2023-02-20 10:03] LABS: Absolute CD3 Count 2540 cells/uL (840-3060); Absolute CD4 Count 1656 cells/uL (490-1740); Absolute CD8 Count 932 cells/uL (180-1170); Absolute Lymphocytes 3356 cells/uL (850-3900); CD4 CD8 Ratio 1.78 (0.86-5.00); Percent CD3 Cells 76 % (57-85); Percent CD4 Cells 49 % (30-61); Percent CD8 Cells 28 % (12-42)
[2023-02-24 08:29] LABS: HIV RNA PCR Qn Copies 195 copies/mL (NOT DETECTED); HIV RNA PCR Qn Log Copies 2.29 (NOT DETECTED)
== END 2023-02-19 15:04 | disposition home or self-care (01) ==
LOC: HO.LAB 15:03
PROVIDERS: PCP Internal Medicine; Visit Provider Internal Medicine
DX: B20 Human immunodeficiency virus [HIV] disease (principal)
CPT/HCPCS: 36415; 80048; 80076; 85025; 86359; 86360; 86803; 87536

== ENCOUNTER 2023-03-10 14:06 | Outpatient (AMB) | payer OTHER, SELFPAY ==
--- NOTE | 2023-03-10 14:11 | A.OFFVIS_ITS ---
Intake Vital Signs 03/10/23 14:13 Pulse 98 Pulse Source Pulse Oximeter Pulse Oximetry (%) 98 Intake Visit Reasons: 3 mth.HIV f/u Allergies No Known Allergies [No Known Allergies*] Allergy (Verified 03/10/23 14:13) HPI 3 mth.HIV f/u HPI Details She reports being on Biktarvy and taking daily with no vitamins or other meds at time. She has viral load 12/11 of 195 and CD4 count of 1656, She feels like Biktarvy isnt working . [facility] Medical History COVID-19 vaccine series completed Arthritis History of COVID-19 Osteoarthritis of left hip HIV (human immunodeficiency virus infection) Surgical History Hx laparoscopic cholecystectomy Hx of rectal sphincterotomy History of colonoscopy Family History Mother Diabetes Social History Household Members: Children Housing: House Are you a primary healthcare corporate account director to a significant other at home: No Do you presently have visiting nurse or other home services: No Patient Tobacco Use Status: Current everyday Tobacco user Tobacco use type: Cigarette Cigarettes Per Day: 3 Years Smoked: 41 Advance Directives Date on File: 01/19/20 service: No Current occupational status: unemployed Current occupation: rt handed Review of Systems Const Reports daytime sleepiness Physical Exam Vital Signs: Last Vital Signs Pulse 98 03/10/23 14:13 Pulse Ox 98 03/10/23 14:13 Const General: cooperative HEENT Head: Yes normal to inspection Face and sinus: Yes normal facial exam Mouth: Normal oral and palatal mucosa present Teeth and gingiva: dentition normal Eyes General: appearance normal, both eyes and all related structures Pupils: Equal, round and reactive pupils present Resp Effort & Inspection: normal respiratory effort Cardio Rate: regular rate Rhythm: regular rhythm GI Palpation (GI): Soft to palpation and nontender General: Yes no CVA tenderness Back/Spine/Pelvis Back: no CVA tenderness Skin General skin exam: no rashes or lesions noted Neuro General: moves all extremities Cranial nerves: Yes Equal, round and reactive pupils present Extrem General: Yes normal to inspection Psych Appearance: grossly normal Assessment & Plan Assessment & Plan (1) HIV (human immunodeficiency virus infection): Comment: She has difficulty tolerating medication since brand name Atripla off market. Code(s): B20 - Human immunodeficiency virus [HIV] disease Plan: Try Descovy and Tivicay. If doesnt work try Triumeq. Recheck viral load at six weeks See in three months. Orders: Orders HIV-1 RNA QN PCR Expanded 3 Months B20 - Human immunodeficiency virus [HIV] disease Medications: New tizbiauuq-vlgquwpzetao-tkwqbdf 600-200-300 mg (Atripla) must be taken on empty stomach brand name medically necessary 1 tab PO BEDTIME 30 tabs 4RF 30 days B20 - Human immunodeficiency virus [HIV] disease Coding Level of Care Code Est Pt Level 3 (11752) Diagnoses HIV (human immunodeficiency virus infection) B20
[2023-03-10 14:13] VITALS: PULSE 98; O2SAT 98
== END 2023-03-10 15:00 | disposition home or self-care (01) ==
PROVIDERS: PCP Internal Medicine; Visit Provider Internal Medicine
DX: B20 Human immunodeficiency virus [HIV] disease (principal)
CPT/HCPCS: 99213

== ENCOUNTER → 2023-03-10 14:06 | Outpatient (BNVA) | payer OTHER, SELFPAY | PROVIDERS: PCP Internal Medicine; Visit Provider Internal Medicine | DX: B20 Human immunodeficiency virus [HIV] disease (principal) | CPT/HCPCS: 99212 ==

== ENCOUNTER 2023-04-11 14:06 | Outpatient (REF) | payer OTHER, SELFPAY ==
--- NOTE | ~2023-04-11 | US_ITS ---
EXAMINATION: MM DIAGNOSTIC DIGITAL BREAST TOMOSYNTHESIS, BILATERAL US BREAST LIMITED, RIGHT MAMMOGRAPHY: CLINICAL INFORMATION: 62-year-old female complaining of central and entire right breast pain upon laying on stomach. COMPARISON: Mammography: 01/29/2018, 12/30/2016, 02/10/2010. TECHNIQUE: Digital breast tomosynthesis is performed in both the craniocaudal and mediolateral oblique views along with computer-aided detection (CAD). Synthesized 2D images are generated from the tomosynthesis. FINDINGS: There are scattered areas of fibroglandular density (ACR BI-RADS breast composition Category b). The left breast is smaller than on the right, a chronic finding. There are collateral vessels in both breasts right greater than left in the upper outer regions. Stable lymph node in the 6:00 axis of the posterior right breast. There are otherwise no suspicious masses, suspicious grouped calcifications, or areas of architectural distortion in either breast. The parenchymal pattern is stable from prior exams. ULTRASOUND: CLINICAL INFORMATION: 62-year-old female complaining of central and entire right breast pain upon laying on stomach. COMPARISON: No prior ultrasound. TECHNIQUE: Targeted sonographic evaluation was performed using a high frequency linear transducer. Exam was concentrated on the right retroareolar region in the area of purported pain. Selected archived documentation. FINDINGS: RIGHT BREAST: There is a mixture of fatty and fibroglandular tissue. No suspicious mass is seen. There is no pathologic acoustic shadowing. There is no cystic abnormality. There is no mammographic abnormality in the region of pain as reported by the patient. US/US breast RT limited mamm only IMPRESSION: No findings of malignancy in either breast. Stable benign findings bilaterally. No mammographic or sonographic correlate to the region of breast pain retroareolar right breast. Recommend clinical management. Otherwise, recommend returning to annual screening mammography in one year. OVERALL ASSESSMENT: Mammography: BI-RADS 2 - Benign Findings Ultrasound: BI-RADS 2 - Benign Findings RECOMMENDATION: 1. Patient should be managed based on the clinical impression. 2. Otherwise, routine annual screening mammography. This patient's information was entered into a reminder system with a target due date for their next mammogram.
== END 2023-04-11 14:07 | disposition home or self-care (01) ==
LOC: HO.MAMMO 14:06
PROVIDERS: PCP Internal Medicine; Visit Provider Internal Medicine
DX: N64.4 Mastodynia (principal)
CPT/HCPCS: 76642; 77062; 77066

== ENCOUNTER → 2023-04-11 15:00 | Outpatient (BNV) | payer OTHER, SELFPAY | PROVIDERS: PCP Internal Medicine; Visit Provider Radiology Diagnostic Radiology | DX: N64.4 Mastodynia (principal) | CPT/HCPCS: 76642; 77062; 77066; G0279 ==

== ENCOUNTER 2023-05-28 15:34 | Outpatient (REF) | payer MEDICARE, SELFPAY ==
[2023-05-29 18:43] LABS: HIV RNA PCR Qn Copies 156 copies/mL (NOT DETECTED); HIV RNA PCR Qn Log Copies 2.19 (NOT DETECTED)
== END 2023-05-28 15:35 | disposition home or self-care (01) ==
LOC: HO.LAB 15:34
PROVIDERS: Visit Provider Internal Medicine
DX: B20 Human immunodeficiency virus [HIV] disease (principal)
CPT/HCPCS: 36415; 87536

== ENCOUNTER 2023-06-09 14:00 | Outpatient (AMB) | payer MEDICARE, SELFPAY ==
--- NOTE | 2023-06-09 14:09 | A.OFFVIS_ITS ---
Intake Vital Signs 06/09/23 14:09 Height 5 ft 4 in Intake Visit Reasons: 3 mth,HIV Allergies No Known Allergies [No Known Allergies*] Allergy (Verified 03/10/23 14:13) HPI 3 mth,HIV HPI Details She feels well. She has CD4 count of 1656 and viral load 05/28 156. She takes Descovy and Tivicay. She has no complaints. [facility] Medical History COVID-19 vaccine series completed Arthritis History of COVID-19 Osteoarthritis of left hip HIV (human immunodeficiency virus infection) Surgical History Hx laparoscopic cholecystectomy Hx of rectal sphincterotomy History of colonoscopy Family History Mother Diabetes Social History Household Members: Children Housing: House Are you a primary careers counsellor to a significant other at home: No Do you presently have visiting nurse or other home services: No Patient Tobacco Use Status: Current everyday Tobacco user Tobacco use type: Cigarette Cigarettes Per Day: 3 Years Smoked: 41 Advance Directives Date on File: 01/19/20 service: No Current occupational status: unemployed Current occupation: rt handed Review of Systems Const All systems reviewed & are unremarkable except as noted in HPI and below Physical Exam Const General: cooperative Orientation/consciousness: patient oriented x3 HEENT Head: Yes normal to inspection Mouth: Normal oral and palatal mucosa present Eyes General: appearance normal, both eyes and all related structures Pupils: Equal, round and reactive pupils present Resp Effort & Inspection: normal respiratory effort Cardio Rate: regular rate Rhythm: regular rhythm GI Palpation (GI): Soft to palpation and nontender General: Yes no CVA tenderness Back/Spine/Pelvis Back: no CVA tenderness Skin General skin exam: no rashes or lesions noted Neuro General: patient oriented x3 Cranial nerves: Yes CN's II-XII intact bilaterally and Yes Equal, round and reactive pupils present Extrem General: Yes normal to inspection Psych Appearance: grossly normal Assessment & Plan Assessment & Plan (1) HIV (human immunodeficiency virus infection): Comment: She is doing well. She should continue Tivicay and Descovy and see us in six months with labs before,CD4 count and viral load. Code(s): B20 - Human immunodeficiency virus [HIV] disease Plan - Orders: Orders HIV-1 RNA QN PCR Expanded 6 Months B20 - Human immunodeficiency virus [HIV] disease Lymphocyte Subset Panel 3 6 Months B20 - Human immunodeficiency virus [HIV] disease Medications: Refilled emtricitabine-tenofovir alafen 200-25 mg (Descovy) 1 tab PO DAILY 30 tabs 5RF 30 days dolutegravir (Tivicay) 50 mg PO DAILY 30 tabs 5RF 30 days Coding Level of Care Code Est Pt Level 3 (68437) Diagnoses HIV (human immunodeficiency virus infection) B20
== END 2023-06-09 14:53 | disposition home or self-care (01) ==
PROVIDERS: PCP Internal Medicine; Visit Provider Internal Medicine
DX: B20 Human immunodeficiency virus [HIV] disease (principal)
CPT/HCPCS: 99213

== ENCOUNTER → 2023-06-09 14:00 | Outpatient (BNVA) | payer MEDICARE, SELFPAY | PROVIDERS: PCP Internal Medicine; Visit Provider Internal Medicine | DX: B20 Human immunodeficiency virus [HIV] disease (principal) | CPT/HCPCS: 99212 ==

== ENCOUNTER 2023-12-10 14:43 | Outpatient (REF) | payer MEDICARE, SELFPAY ==
[2023-12-11 15:04] LABS: HIV RNA PCR Qn Copies 67 copies/mL (NOT DETECTED); HIV RNA PCR Qn Log Copies 1.83 (NOT DETECTED)
[2023-12-14 15:23] LABS: Absolute CD3 Count 3010 cells/uL (840-3060); Absolute CD4 Count 1985 cells/uL (490-1740); Absolute CD8 Count 1091 cells/uL (180-1170); Absolute Lymphocytes 4048 cells/uL (850-3900); CD4 CD8 Ratio 1.82 (0.86-5.00); Percent CD3 Cells 74 % (57-85); Percent CD4 Cells 49 % (30-61); Percent CD8 Cells 27 % (12-42)
== END 2023-12-10 14:44 | disposition home or self-care (01) ==
LOC: HO.LAB 14:43
PROVIDERS: PCP Internal Medicine; Visit Provider Internal Medicine
DX: B20 Human immunodeficiency virus [HIV] disease (principal)
CPT/HCPCS: 36415; 86359; 86360; 87536

== ENCOUNTER 2023-12-17 13:49 | Outpatient (AMB) | payer MEDICARE, SELFPAY ==
[2023-12-17 13:52] VITALS: BMI 28.8
--- NOTE | 2023-12-17 13:52 | MHC.OFFVIS ---
Vital Signs 12/17/23 13:52 Height 5 ft 4 in Weight 168 lb BMI 28.8 Intake Visit Reasons: hiv labs follow up Allergies No Known Allergies [No Known Allergies*] Allergy (Verified 03/10/23 14:13) HPI HPI hiv labs follow up: Details: She feels well. She has CD4 count 1985 and viral load 67 on 12/09. She is UTD on health care strategies. [facility] Medical History COVID-19 vaccine series completed Arthritis History of COVID-19 Osteoarthritis of left hip HIV (human immunodeficiency virus infection) Surgical History Hx laparoscopic cholecystectomy Hx of rectal sphincterotomy History of colonoscopy Family History Mother Diabetes Social History Household Members: Children Housing: House Are you a primary housekeeper child care to a significant other at home: No Do you presently have visiting nurse or other home services: No Patient Tobacco Use Status: Current everyday Tobacco user Tobacco use type: Cigarette Cigarettes Per Day: 3 Years Smoked: 41 Advance Directives Date on File: 01/19/20 service: No Current occupational status: unemployed Current occupation: rt handed Review of Systems Const All systems reviewed & are unremarkable except as noted in HPI and below Physical Exam Vital Signs: BMI result Body Mass Index 28.8 Assessment & Plan Assessment & Plan (1) HIV (human immunodeficiency virus infection): Comment: She is doing well. She should continue Tivicay and Descovy and see us in six months with labs before,CD4 count and viral load. Code(s): B20 - Human immunodeficiency virus [HIV] disease Category: Medical Plan: Check CD4 count and viral load in six months. See then. Orders: Orders HIV-1 RNA QN PCR Expanded 5 Months B20 - Human immunodeficiency virus [HIV] disease Complete Blood Count Auto Diff 5 Months B20 - Human immunodeficiency virus [HIV] disease Basic Metabolic Panel 5 Months B20 - Human immunodeficiency virus [HIV] disease Lymphocyte Subset Panel 3 5 Months B20 - Human immunodeficiency virus [HIV] disease Liver Panel 5 Months B20 - Human immunodeficiency virus [HIV] disease Medications: Refilled dolutegravir 50 mg PO DAILY 30 days 30 tabs 5RF emtricitabine-tenofovir alafen 200-25 mg 1 tab PO DAILY 30 days 30 tabs 5RF emtricitabine-tenofovir alafen 200-25 mg (Descovy) 1 tab PO DAILY 30 tabs 5RF 30 days dolutegravir (Tivicay) 50 mg PO DAILY 30 tabs 5RF 30 days Coding Level of Care Code Est Pt Level 4 (93541) Diagnoses HIV (human immunodeficiency virus infection) B20
== END 2023-12-17 14:42 | disposition home or self-care (01) ==
LOC: HO.HID 13:49
PROVIDERS: PCP Internal Medicine; Visit Provider Internal Medicine
DX: B20 Human immunodeficiency virus [HIV] disease (principal)
CPT/HCPCS: 99214

== ENCOUNTER → 2023-12-17 13:49 | Outpatient (BNVA) | payer MEDICARE, SELFPAY | PROVIDERS: PCP Internal Medicine; Visit Provider Internal Medicine | DX: B20 Human immunodeficiency virus [HIV] disease (principal) | CPT/HCPCS: 99212 ==

== ENCOUNTER 2024-06-07 12:01 | Outpatient (REF) | payer MEDICARE, SELFPAY ==
[2024-06-07 12:28] LABS: MANUAL DIFF FLAG NO
[2024-06-07 12:47] LABS: Basophils Absolute Auto 0.1 X10*3/uL (0.0-0.2); Basophils Percent Auto 0.7 % (0-2); Eosinophils Absolute Auto 0.3 X10*3/uL (0.0-0.4); Eosinophils Percent Auto 3.5 % (0-4); Hematocrit 39.7 % (37.0-47.0); Hemoglobin 13.3 g/dl (12.0-16.0); Imm Gran Abs Auto 0.04 X10*3/uL (0.00-0.03); Imm Gran Pct Auto 0.5 % (0.0-0.4); Lymphocytes Absolute Auto 3.3 X10*3/uL (1.2-4.9); Lymphocytes Percent Auto 38.2 % (20-40); Mean Corpuscular HGB Conc 33.5 g/dl (31.0-35.0); Mean Corpuscular Hemoglobin 33.4 pg (27.0-33.0); Mean Corpuscular Volume 99.7 fL (80.0-98.0); Mean Platelet Volume 10.6 fL (9.4-12.3); Monocytes Absolute Auto 0.4 X10*3/uL (0.1-1.2); Monocytes Percent Auto 4.8 % (2-11); Neutrophils Absolute Auto 4.5 x10*3/uL (2.0-8.3); Neutrophils Percent Auto 52.3 % (45-73); Platelet Count 252 X10*3/uL (160-400); Red Blood Count 3.98 X10*6/uL (4.20-5.50); Red Cell Distribution Width 13.6 % (11.0-16.0); White Blood Count 8.5 X10*3/uL (4.8-10.8)
[2024-06-07 13:21] LABS: Alanine Aminotransferase 23 U/L (0-31); Albumin Level 3.9 g/dL (3.5-5.0); Alkaline Phosphatase 91 U/L (39-117); Anion Gap 10 (12-20); Aspartate Amino Transferase 20 U/L (5-31); Bilirubin Direct 0.1 mg/dL (0.0-0.5); Bilirubin Total 0.3 mg/dL (0.0-1.0); Blood Urea Nitrogen 16 mg/dL (9-16); Calcium 9.5 mg/dL (8.4-10.2); Carbon Dioxide 28 mmol/L (22-29); Chloride 107 mmol/L (96-108); Estimated Glomerular Filt Rate > 60; Glucose Random 135 mg/dL (60-115); Potassium 3.9 mmol/L (3.3-5.1); Sodium 141 mmol/L (135-145); Total Protein 7.3 g/dL (6.5-8.0)
--- OUTSIDE RECORDS SUMMARY | 2024-06-07 13:55 | XMS_ITS ---
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 1 04:23 pm EDT - 1 03:30 pm EDT Social History
[2024-06-10 17:33] LABS: HIV RNA PCR Qn Copies 66 copies/mL (NOT DETECTED); HIV RNA PCR Qn Log Copies 1.82 (NOT DETECTED)
[2024-06-11 00:53] LABS: Absolute CD3 Count 2249 cells/uL (840-3060); Absolute CD4 Count 1487 cells/uL (490-1740); Absolute CD8 Count 824 cells/uL (180-1170); Absolute Lymphocytes 3090 cells/uL (850-3900); Percent CD3 Cells 73 % (57-85); Percent CD4 Cells 48 % (30-61); Percent CD8 Cells 27 % (12-42)
== END 2024-06-07 12:02 | disposition home or self-care (01) ==
LOC: HO.LAB 12:01
PROVIDERS: PCP Internal Medicine; Visit Provider Internal Medicine
DX: B20 Human immunodeficiency virus [HIV] disease (principal)
CPT/HCPCS: 36415; 80048; 80076; 85025; 86359; 86360; 87536

== ENCOUNTER 2024-06-16 14:24 | Outpatient (AMB) | payer MEDICARE, SELFPAY ==
--- NOTE | 2024-06-16 14:23 | A.OFFVIS_ITS ---
Vital Signs 06/16/24 14:28 Height 5 ft 4 in Weight 176 lb BMI 30.2 Pulse 96 Pulse Source Pulse Oximeter Pulse Oximetry (%) 98 Oxygen Delivery Method Room Air Intake Visit Reasons: hiv labs follow up Allergies No Known Allergies [No Known Allergies*] Allergy (Verified 06/16/24 14:29) HPI HPI hiv labs follow up: Details: She is taking Tivicay and Descovy She has CD4 count of 1487 and viral load 66. She reports daily adherence. She has no complaints and Dr Landeros retired so shes going to new provider for PCP. [facility] Medical History COVID-19 vaccine series completed Arthritis History of COVID-19 Osteoarthritis of left hip HIV (human immunodeficiency virus infection) Surgical History Hx laparoscopic cholecystectomy Hx of rectal sphincterotomy History of colonoscopy Family History Mother Diabetes Social History Household Members: Children Housing: House Are you a primary care transition coordinator to a significant other at home: No Do you presently have visiting nurse or other home services: No Patient Tobacco Use Status: Current everyday Tobacco user Tobacco use type: Cigarette Cigarettes Per Day: 3 Years Smoked: 41 Advance Directives Date on File: 01/19/20 service: No Current occupational status: unemployed Current occupation: rt handed Review of Systems Const All systems reviewed & are unremarkable except as noted in HPI and below Physical Exam Vital Signs: Last Vital Signs Pulse 96 06/16/24 14:28 Pulse Ox 98 06/16/24 14:28 Oxygen Delivery Method Room Air 06/16/24 14:28 BMI result Body Mass Index 30.2 Const General: cooperative Orientation/consciousness: patient oriented x3 HEENT Head: Yes normal to inspection Mouth: Normal oral and palatal mucosa present Eyes General: appearance normal, both eyes and all related structures Pupils: Equal, round and reactive pupils present Resp Effort & Inspection: normal respiratory effort Cardio Rate: regular rate Rhythm: regular rhythm GI Palpation (GI): Soft to palpation and nontender General: Yes no CVA tenderness Back/Spine/Pelvis Back: no CVA tenderness Skin General skin exam: no rashes or lesions noted Neuro General: patient oriented x3 Cranial nerves: Yes CN's II-XII intact bilaterally and Yes Equal, round and reactive pupils present Extrem General: Yes normal to inspection Psych Appearance: grossly normal Assessment & Plan Assessment & Plan (1) HIV (human immunodeficiency virus infection): Comment: She is doing well. She should continue Tivicay and Descovy and see us in six months with labs before,CD4 count and viral load. Code(s): B20 - Human immunodeficiency virus [HIV] disease Category: Medical Plan HIV ,doing well. Check viral load and CD4 count December. See after labs. Continue Tivicay and Descovy as didnt like Biktarvy. She declines anal Pap,colonscopy and bone density test. Medications: Refilled emtricitabine-tenofovir alafen 200-25 mg (Descovy) 1 tab PO DAILY 30 tabs 5RF 30 days dolutegravir (Tivicay) 50 mg PO DAILY 30 tabs 5RF 30 days Coding Level of Care Code Est Pt Level 4 (34690) Diagnoses HIV (human immunodeficiency virus infection) B20
[2024-06-16 14:28] VITALS: PULSE 96; O2SAT 98; BMI 30.2
== END 2024-06-16 15:02 | disposition home or self-care (01) ==
LOC: HO.HID 14:24
PROVIDERS: PCP Internal Medicine; Visit Provider Internal Medicine
DX: B20 Human immunodeficiency virus [HIV] disease (principal)
CPT/HCPCS: 99214

== ENCOUNTER → 2024-06-16 14:24 | Outpatient (BNVA) | payer MEDICARE, SELFPAY | PROVIDERS: PCP Internal Medicine; Visit Provider Internal Medicine | DX: B20 Human immunodeficiency virus [HIV] disease (principal) | CPT/HCPCS: 99212 ==

== ENCOUNTER 2024-12-27 16:04 | Outpatient (REF) | payer MEDICARE, SELFPAY ==
--- OUTSIDE RECORDS SUMMARY | 2024-12-27 21:14 | XMS_ITS ---
Author Organization [facility] Care Team Providers Care Field Specialist Name Role Phone Finn Landeros Unavailable Unavailable Allergies and adverse reactions No Known Allergies Care Team Name Role Address Phone Organization Dates Finn Landeros PCP [address], [address], [place], [address], [place] (Office): : [facility] 12/29/2020 - 01/02/2021 Mental Status Section Date Assessment Total Score Description 01/02/2021 BIMS 15 cognitively int act CAM 0 No delirium ind icated PHQ-9 00 Problems Problem # Description Date of onset Resolved Date Code CodeSystem Concern Status 1 AFTERCARE FOLLOWING JOINT REPLACEMENT SURGERY 12/29/[address] active 2 DYSPHAGIA, OROPHARYNGEAL PHASE 12/29/[address] active 3 ENCOUNTER FOR OBSERVATION FOR SUSPECTED EXPOSURE TO OTHER BIOLOGICAL AGENTS RULED OUT 12/29/[address] active 4 HUMAN IMMUNODEFICIENCY VIRUS [HIV] DISEASE 12/29/[address] active 5 MUSCLE WASTING AND ATROPHY, NOT ELSEWHERE CLASSIFIED, LEFT SHOULDER 12/29/[address] active 6 MUSCLE WASTING AND ATROPHY, NOT ELSEWHERE CLASSIFIED, RIGHT SHOULDER 12/29/[address] active 7 OTHER ASTHMA 12/29/[address] acti ve 8 PRESENCE OF LEFT ARTIFICIAL HIP JOINT 12/29/[address] active 9 UNILATERAL PRIMARY OSTEOARTHRITIS, LEFT HIP 12/29/[address] active Reason for Referral No Reasons for Referral Entered Social History Social History Observation Description Start Date End Date Code Code System Current Smoking Status Tobacco smoking consumption unknown 485417500 SNOMED CT Sex Assigned At Female 1960 96612-9 [facility] Gender Identity Sexual Orientation Vital Signs Code Code System Vitals Name Values and Units Timing Information 57897-2 [facility] Pain Level Value=0.0 01/02/2021 8462-4 [facility] Blood Pressure-Diastolic Value=71 Un its=mmHg 01/02/2021 8480-6 [facility] Blood Pressure-Systolic Ohwjo=628 Un its=mmHg 01/02/2021 8867-4 [facility] Heart rate Value=74.0 Units=/min 9279-1 [facility] Respiratory Rate Value=18.0 Units=/m in 01/02/2021 8310-5 [facility] Body Temperature Value=97.2 Units= F 01/02/2021 12260-9 [facility] O2 % BldC Oximetry Value=98.0 Units= % 01/02/2021 8302-2 [facility] Height Value=64.0 Units=Inches 12/29/2020 95196-6 [facility] Weight Cmfma=002.0 Units=Lbs
--- OUTSIDE RECORDS SUMMARY | 2024-12-27 21:14 | XMS_ITS | Patient Health Record ---
Author Organization [facility] Address [address] [place] [address] Care Team Providers Care Client Service Manager Name Role Phone Leti (RETIRED) Finn WILDE Primary Care Provide r Unavailable Jordon Rodriguez Unavailable [phone] Reason For Referral No Information Medications Medication SIG (Take, Route, Frequency, Duration) Notes Start Date End Date Status Atripla 600-200-300 MG 1 tablet on an em pty stomach Orally Once a day Active Colyte w Flavor Packs 240 GM as directed Orally as directed for 1 day(s) 10/07/2013 Active Problems Problem Type SNOMED Code ICD Code Onset Dates Problem Status W/U Status Risk Notes Problem Pre-surgery evaluation (369991585) Other specified pre-operative examination (V72.83) Active confirmed Problem Family History of Cancer of Colon (Situation) (712912033) Family history of colon cancer (V16.0) Active confirmed Problem Colon cancer screening (726190486) Colon cancer screening (V76.51) Active confirmed Plan Of Treatment Future Test Test Name Order Date COLONOSCOPY 10/07/2013 Insurance Providers Payer Name Payer Address Payer Phone Subscriber Number Group Number Insured Name Patient Relationship to Insured Coverage Start Date Coverage End Date MEDICARE OF [place] [address] [place] [id number] KAMAR SANCHEZ Self - patient is the insured MEDICAID OF [facility] [address] [place] [address] [id number] KAMAR SANCHEZ Self - patient is the insured Medical (General) History Medical History History ICD Code Denies ID, DM,CVA,Lung disease,renal dis ease Had 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 Surgical History Surgery Date(Month/Year) cholecystectomy
[2024-12-29 16:23] LABS: HIV RNA PCR Qn Copies 112 copies/mL (NOT DETECTED); HIV RNA PCR Qn Log Copies 2.05 (NOT DETECTED)
[2025-01-03 15:43] LABS: Absolute CD3 Count 2345 cells/uL (840-3060); Absolute CD8 Count 898 cells/uL (180-1170); Percent CD3 Cells 73 % (57-85); Percent CD8 Cells 28 % (12-42)
== END 2024-12-27 16:05 | disposition home or self-care (01) ==
LOC: HO.LAB 16:04
PROVIDERS: Visit Provider Internal Medicine
DX: B20 Human immunodeficiency virus [HIV] disease (principal)
CPT/HCPCS: 36415; 86359; 86360; 87536

== ENCOUNTER 2025-01-03 09:26 | Outpatient (AMB) | payer MEDICARE, SELFPAY ==
[2025-01-03 09:45] VITALS: PULSE 93; O2SAT 97; BMI 29.9
--- NOTE | 2025-01-03 09:45 | A.OFFVIS_ITS ---
Vital Signs 01/03/25 09:45 Height 5 ft 4 in Weight 174 lb BMI 29.9 Pulse 93 Pulse Source Pulse Oximeter Pulse Oximetry (%) 97 Oxygen Delivery Method Room Air Intake Visit Reasons: 6 mth f/u Allergies No Known Allergies (No Known Allergies*) Allergy (Verified 01/03/25 09:46) HPI Comments Details: History of Present Illness The patient is a 64-year-old female presenting with a scheduled follow-up for HIV care. She remains stable and in good overall health status under her current antiretroviral treatment, which includes Tivicay 59mg daily and Descovy 1 tablet orally daily. She reports excellent adherence to her medication regimen. Her recent lab results indicate a viral load of 112 copies/mL from December 27, with the CD4 count still pending. Although she previously preferred taking Atripla, this medication is less frequently utilized and available now. The patient is currently undergoing a transition, moving from her apartment of 29 years to a retirement community in [facility]. Despite this, she has no health complaints, but she has yet to complete a colonoscopy or anal Pap screening, which she intends to consider. There are no changes noted in her past medical, medication, social, or family histories. Review of Systems - General: Reports feeling well, no complaints. - Gastrointestinal: Denies having completed a colonoscopy. - Genitourinary: Denies having completed an anal Pap. - Hematologic/Lymphatic: No complaints reported. Physical Exam - General- Pleasant female, vital signs are stable. - Head- HEENT are normal, pupils equal, round, reactive to light accommodation. - Oropharynx- Clear. - Lungs- Clear to auscultation. - Cardiac- Regular rhythm. - Abdomen- Soft, non-tender. - Neurologic- Non-focal. - Skin- Clear. Results - Labs: Viral load of 112 copies/mL from 12/27. CD4 count pending from 12/27. Plan Patient was informed and verbally consented to the use of an ambient scribe for clinic note documentation during this visit. 1. Human immunodeficiency virus [HIV] disease B20 HCC 1 The patient remains on her current antiretroviral regimen of Tivicay 50 mg daily and Descovy 1 tablet daily and is monitored with a goal of maintaining stab ility of her condition. Viral load is currently low at 112 copies/mL, with the awaited CD4 count results to further guide management. Enhanced adherence is highlighted, and further investigations such as colonoscopy and anal Pap and mammogram are encouraged as per her readiness. Vaccinations are declined per patient choice. Discussion Notes In our discussion, the ongoing management of the patient?s HIV infection was reviewed, confirming stable health conditions with a low-level viral load. We discussed continued adherence to her current medication regimen and the importance of avoiding vitamin interactions. The need for regular surveillance, including CD4 counts and viral load checks within six months, was emphasized. The patient is currently contemplating colonoscopy and anal Pap and mammogram all of which are advised.Tivicay and Descovy were renewed for six months. The patient opted to decline vaccinations, aligning with her preferences. Follow-up plans were established, ensuring continued comprehensive management of her condition. Medical Decision Making The patient's slight increase in viral load indicates vigilance in monitoring the patient's adherence and effectiveness of the current regimen of Tyvek and Descovy. Given the low-level viremia and adherence to medications, the decision is to maintain the current antiretroviral regimen. The objective to minimize viral load and preserve CD4 count emphasizes close monitoring and timely follow- ups. Additionally, completion of screenings such as colonoscopy and anal Pap may offer insights into her general health and address an unmet preventative care need. These components illustrate a thoughtfully considered treatment path aligning with treatment standards. Patient Instructions - Continue taking Tyvek 15 mg daily and Descovy 1 tablet each night. - Do not take vitamins along with your current medications. - Plan a follow-up appointment in six months. - Consider and schedule a colonoscopy and anal Pap when ready. - Report any new symptoms or health changes promptly. - Keep monitoring your health and maintain medication adherence consistently. [facility] Medical History (Updated 01/03/25 @ 11:12 by Noa Kinsey MD) HIV disease COVID-19 vaccine series completed Arthritis History of COVID-19 Osteoarthritis of left hip HIV (human immunodeficiency virus infection) Surgical History Hx laparoscopic cholecystectomy Hx of rectal sphincterotomy History of colonoscopy (~03/23/19) Family History Mother Diabetes Social History Household Members: Children Housing: House Are you a primary respiratory care assistant to a significant other at home: No Do you presently have visiting nurse or other home services: No Patient Tobacco Use Status: Current everyday Tobacco user Tobacco use type: Cigarette Cigarettes Per Day: 3 Years Smoked: 41 Advance Directives Date on File: 01/19/20 service: No Current occupational status: unemployed Current occupation: rt handed Physical Exam Vital Signs: Last Vital Signs Pulse 93 01/03/25 09:45 Pulse Ox 97 01/03/25 09:45 Oxygen Delivery Method Room Air 01/03/25 09:45 BMI result Body Mass Index 29.9 Assessment & Plan Assessment & Plan (1) HIV disease: Code(s): B20 - Human immunodeficiency virus [HIV] disease Category: Medical Plan: as above Medications: Refilled emtricitabine-tenofovir alafen 200-25 mg (Descovy) 1 tab PO DAILY 30 tabs 5RF 30 days dolutegravir (Tivicay) 50 mg PO DAILY 30 tabs 5RF 30 days Coding Level of Care Code Est Pt Level 4 (58888) Diagnoses HIV disease B20
--- OUTSIDE RECORDS SUMMARY | 2025-01-03 11:08 | XMS_ITS | Patient Health Record ---
Author Organization [facility] Address [address] [place] [address] Care Team Providers Care Leather Leveler Name Role Phone Leti (RETIRED) Finn WILDE Primary Care Provide r Unavailable Jordon Rodriguez Unavailable [phone] Reason For Referral No Information Medications Medication [...] W/U Status Risk Notes Problem Pre-surgery evaluation (711778745) Other specified pre-operative examination (V72.83) Active confirmed Problem Family History of Cancer of Colon (Situation) (605833515) Family history of colon cancer (V16.0) Active confirmed Problem Colon cancer screening (905092470) Colon cancer screening (V76.51) Active confirmed Plan Of Treatment Future Test Test Name Order Date COLONOSCOPY 10/07/2013 Insurance Providers Payer Name Payer Address Payer Phone Subscriber Number Group Number Insured Name Patient Relationship to Insured Coverage Start Date Coverage End Date MEDICARE OF [place] [address] [place] [id number] [phone] [id number] KAMAR SANCHEZ Self - patient is the insured MEDICAID OF [facility] [address] [place] [phone] [id number] KAMAR SANCHEZ Self - patient is the insured Medical (General) History Medical History History ICD Code Denies [place], DM,CVA,Lung disease,renal dis ease Had 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 Surgical History Surgery Date(Month/Year) cholecystectomy
== END 2025-01-03 10:23 | disposition home or self-care (01) ==
LOC: HO.HID 09:26
PROVIDERS: Visit Provider Internal Medicine
DX: B20 Human immunodeficiency virus [HIV] disease (principal)
CPT/HCPCS: 99214

== ENCOUNTER → 2025-01-03 09:26 | Outpatient (BNVA) | payer MEDICARE, SELFPAY | PROVIDERS: Visit Provider Internal Medicine | DX: B20 Human immunodeficiency virus [HIV] disease (principal) | CPT/HCPCS: 99212 ==

== ENCOUNTER 2025-03-16 11:45 | Outpatient (REF) | payer MEDICARE, SELFPAY ==
[2025-03-16 12:11] LABS: MANUAL DIFF FLAG NO
[2025-03-16 12:51] LABS: Hematocrit 39.5 % (37.0-47.0); Hemoglobin 13.4 g/dl (12.0-16.0); Imm Gran Abs Auto 0.02 X10*3/uL (0.00-0.03); Imm Gran Pct Auto 0.3 % (0.0-0.4); Lymphocytes Absolute Auto 2.9 X10*3/uL (1.2-4.9); Mean Corpuscular HGB Conc 33.9 g/dl (31.0-35.0); Mean Corpuscular Hemoglobin 33.3 pg (27.0-33.0); Mean Corpuscular Volume 98.0 fL (80.0-98.0); NRBC Abs Auto 0.000 X10*3/uL (0.0-0.012); NRBC Pct Auto 0.0 /100WBC (0.0-0.2); Platelet Count 313 X10*3/uL (160-400); Red Blood Count 4.03 X10*6/uL (4.20-5.50); White Blood Count 7.4 X10*3/uL (4.8-10.8)
[2025-03-16 13:19] LABS: Alanine Aminotransferase 18 U/L (0-31); Albumin Level 4.6 g/dL (3.5-5.0); Alkaline Phosphatase 105 U/L (39-117); Anion Gap 11 (12-20); Aspartate Amino Transferase 24 U/L (5-31); Blood Urea Nitrogen 13 mg/dL (9-16); Calcium 9.7 mg/dL (8.4-10.2); Carbon Dioxide 27 mmol/L (22-29); Chloride 107 mmol/L (96-108); Cholesterol 234 mg/dL (<200); Estimated Glomerular Filt Rate > 60; HDL Cholesterol 68 mg/dL (>40); Potassium 3.8 mmol/L (3.3-5.1); Sodium 141 mmol/L (135-145); Total Protein 7.4 g/dL (6.5-8.0); Triglycerides 122 mg/dL (<150)
--- OUTSIDE RECORDS SUMMARY | 2025-03-16 14:13 | XMS_ITS ---
Author Organization [facility] Care Team Providers Care Hair Dryer Name Role Phone Finn Landeros Unavailable Unavailable Allergies and adverse reactions No Known Allergies Care Team Name Role Address Phone Organization Dates Finn Landeros [address], [address], [place], [address], [place] (Office): [phone] (Fax): [phone] [facility] 12/29/2020 - 01/02/2021 Mental Status Section Date Assessment Total Score Description 01/02/2021 BIMS 15 cognitively int act CAM 0 No delirium ind icated PHQ-9 00 Insurance Providers Coverage Status Coverage Type Relationship to Subscriber Member Identifier Subscriber Identifier Group Identifier Payer Identifier and Other information Code: 1 Code System OID:[id number] [id number]. 3.221.5 Code System Name: Source of Payment Typology (PHDSC) Display: Medicare Translation : Code: [place]UC[place] Code System: OID:[id number] [id number]. 6.255.1336 Code System Name: Insurance Type Code ([id number]) Display Name: Medicare Part A Problems Problem # Description Date of onset Resolved Date Code CodeSystem Concern Status 1 AFTERCARE FOLLOWING JOINT REPLACEMENT SURGERY 12/29/[address] active 2 DYSPHAGIA, OROPHARYNGEAL PHASE 12/29/[address] active 3 ENCOUNTER FOR OBSERVATION FOR SUSPECTED EXPOSURE TO OTHER BIOLOGICAL AGENTS RULED OUT 12/29/[address] active 4 HUMAN IMMUNODEFICIENCY VIRUS [HIV] DISEASE 12/29/[address] active 5 MUSCLE WASTING AND ATROPHY, NOT ELSEWHERE CLASSIFIED, LEFT SHOULDER 12/29/[address] active 6 MUSCLE WASTING AND ATROPHY, NOT ELSEWHERE CLASSIFIED, RIGHT SHOULDER 12/29/[address] active 7 OTHER ASTHMA 12/29/[address] acti ve 8 PRESENCE OF LEFT ARTIFICIAL HIP JOINT 12/29/[address] active 9 UNILATERAL PRIMARY OSTEOARTHRITIS, LEFT HIP 12/29/[address] active Reason for Referral No Reasons for Referral Entered Social History Social History Observation Description Start Date End Date Code Code System Current Smoking Status Tobacco smoking consumption unknown 747773580 SNOMED CT Sex Assigned At Female 1960 22204-3 [facility] Gender Identity Sexual Orientation Vital Signs Code Code System Vitals Name Values and Units Timing Information 85597-6 [facility] Pain Level Value=0.0 01/02/2021 8462-4 [facility] Blood Pressure-Diastolic Value=71 Un its=mmHg 01/02/2021 8480-6 [facility] Blood Pressure-Systolic Wvutq=285 Un its=mmHg 01/02/2021 8867-4 [facility] Heart rate Value=74.0 Units=/min 9279-1 [facility] Respiratory Rate Value=18.0 Units=/m in 01/02/2021 8310-5 [facility] Body Temperature Value=97.2 Units= F 01/02/2021 68238-2 [facility] O2 % BldC Oximetry Value=98.0 Units= % 01/02/2021 8302-2 [facility] Height Value=64.0 Units=Inches 12/29/2020 45982-6 [facility] Weight Cvuvu=175.0 Units=Lbs
--- OUTSIDE RECORDS SUMMARY | 2025-03-16 14:13 | XMS_ITS | Patient Health Record ---
Author Organization [facility] Address [address] [place] [address] Care Team Providers Care Net Lead Developer Name Role Phone Leti (RETIRED) Finn WILDE Primary Care Provide r Unavailable Jennifer Jordon Unavailable [phone] Reason For Referral No Information Medications Medication SIG (Take, Route, Frequency, Duration) Notes Start Date End Date Status Atripla 600-200-300 MG Tablet 1 tablet on an empty stomach Orally Once a day Active Colyte w Flavor Packs 240 GM Solution Reconstituted as directed Orally as directed; Duration: 1 day(s) 10/07/2013 Active Social History Social History Additional Details Category Social Info Options Details Miscellaneous: Marital status: single Occupation: On disability-un employed Section Notes: Smoker; no sig alcohol Problems Problem Type SNOMED Code ICD Code Onset Dates Problem Status W/U Status Risk Notes Problem Pre-surgery evaluation (054869818) Other specified pre-operative examination (V72.83) Active confirmed Problem Family History of Cancer of Colon (Situation) (700113749) Family history of colon cancer (V16.0) Active confirmed Problem Colon cancer screening (788305040) Colon cancer screening (V76.51) Active confirmed Plan Of Treatment Future Test Test Name Order Date COLONOSCOPY 10/07/2013 Insurance Providers Payer Name Payer Address Payer Phone Subscriber Number Group Number Insured Name Patient Relationship to Insured Coverage Start Date Coverage End Date [place] [address] [place] [id number] KAMAR SANCHEZ Self - patient is the insured [facility] [facility] [employer] [address] [place] [address] [id number] KAMAR SANCHEZ Self - patient is the insured Medical (General) History Medical History History ICD Code Denies [place], DM,CVA,Lung disease,renal dis ease Had 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 Surgical History Surgery Date(Month/Year) cholecystectomy
[2025-03-16 19:37] LABS: Reflex LDLD? No
[2025-03-17 06:34] LABS: Syphilis Screen Nonreactive (Nonreactive)
[2025-03-17 06:45] LABS: HBS Num1 0.00 mIU/mL (0-7.99); HBc Num1 0.08 S/CO (0.00-0.79); HBsAGNum1 0.41 S/CO (0.00-0.99); Hepatitis B Surface Antigen Negative (Negative); ~HepC Num1 0.18 S/CO (0.00-0.79); ~Hepatitis B Surface Antibody NONREACTIVE (Nonreactive); ~Hepatitis C Antibody Nonreactive (Nonreactive)
[2025-03-17 10:44] LABS: Rubeola IgG (Measles) >300.00 AU/mL
[2025-03-18 05:50] LABS: ~Hepatitis A Antibody IgG 0.63 S/CO (0.00-0.99)
[2025-03-18 08:39] LABS: HIV RNA PCR Qn Copies 51 copies/mL (NOT DETECTED); HIV RNA PCR Qn Log Copies 1.71 (NOT DETECTED)
[2025-03-18 19:14] LABS: TS Negative Control Passed; TS Panel A 0; TS Panel B 0; TS Positive Control Passed; TSpotTB Negative (Negative)
== END 2025-03-16 11:46 | disposition home or self-care (01) ==
LOC: HO.LAB 11:45
PROVIDERS: Visit Provider Internal Medicine
DX: Z01.84 Encounter for antibody response examination (principal); Z11.1 Encounter for screening for respiratory tuberculosis; Z13.6 Encounter for screening for cardiovascular disorders; Z21 Asymptomatic human immunodeficiency virus [HIV] infection status
CPT/HCPCS: 36415; 80053; 80061; 85025; 86481; 86704; 86706; 86708; 86735; 86762; 86765; 86780; 86787; 86803; 87340; 87536